=== PATIENT | female | born 1950 | race Caucasian/White ===

== ENCOUNTER → 2018-02-17 10:55 | Outpatient (CLI) | payer BC, SELFPAY ==
--- NOTE | 2018-02-17 | DI.CT.S_ITS ---
PROCEDURE: CT ABDOMEN WO CON INDICATIONS: EPIGASTRIC PAIN TECHNIQUE: After the administration of oral contrast, 5 mm thick sections acquired from the diaphragms to the iliac crests. 5 mm coronal and sagittal reformats were then performed. For radiation dose reduction, the following was used: automated exposure control, adjustment of mA and/or kV according to patient size. COMPARISON: Outside Facility, , CT ABDOMEN/PELVIS WITH CONTRAST, 07/18/2015, 10:05. FINDINGS: Image quality: Limited by absence of both oral and intravenous contrast.. Lung bases: Lung bases are clear. Heart size is normal. Solid organs: Liver is normal in size. Gallbladder appears normal. Pancreas is normal in contours. Spleen is normal in size. No adrenal nodules. Both kidneys are normal in size, without hydronephrosis or nephrolithiasis. Peritoneum and bowel: Bowel loops demonstrate normal wall thickness and caliber. No free fluid or air. Nodes and vessels: No retroperitoneal or mesenteric adenopathy by size criteria. Aorta and inferior vena cava are normal in size. Bones: No suspicious bony lesions. No vertebral body compression fractures. Miscellaneous: No ventral hernias. IMPRESSION: Source of epigastric pain is not seen. Dictated by: Bhaskar Parra M.D. on 02/17/2018 at 13:40 Approved by: Bhaskar Parra M.D. on 02/17/2018 at 13:41
== END ==
PROVIDERS: Visit Provider Family Medicine
DX: R10.13 Epigastric pain (principal)
CPT/HCPCS: 74150

== ENCOUNTER 2018-04-23 16:21 | Emergency (ER) | payer BC, SELFPAY ==
[2018-04-23 16:24] VITALS: BP 168/80; PULSE 71; RESP 16; TEMP 36.4; BMI 33.3
--- NOTE | 2018-04-23 16:32 | DI.RAD.S_ITS ---
PROCEDURE: XR CHEST 1V INDICATIONS: Shortness of breath TECHNIQUE: One view of the chest was acquired. COMPARISON: None. FINDINGS: Surgical changes and devices: Cervical fixation plates. Lungs and pleura: No pleural effusions or pneumothorax. Lungs are clear. Mediastinum: Mediastinal contours appear normal. Heart size is normal. Bones and chest wall: No suspicious bony lesions. Overlying soft tissues appear unremarkable. IMPRESSION: No acute pulmonary process. Dictated by: Selam Khan M.D. on 04/23/2018 at 17:53 Approved by: Selam Khan M.D. on 04/23/2018 at 17:53
--- NOTE | 2018-04-23 16:44 | ED_ITS ---
HPI - Chest Pain General Chief Complaint: Chest Pain Stated Complaint: TROUBLE BREATHING HEADACHE NAUSEA Time Seen by Provider: 04/23/18 16:32 Source: patient Mode of arrival: ambulatory Limitations: no limitations History of Present Illness HPI narrative: 67-year-old nonsmoking female presents with a chief complaint of multiple relatively vague symptoms that have been persisting for the past week. She has felt fatigued and a bit out of it with episodes of mild headache and occasional cough. She has been nauseated and had some decreased appetite. She states she feels like she often does when a viral syndrome is present but due to an episode of near-syncope this morning where she felt quite flushed and very odd she decided to present to the emergency department for further evaluation. patient had some episodes of left shoulder pain that resolved She denies ongoing symptoms MD complaint: other Onset (ago): day(s) Duration: intermittent and now resolved Context: recent illness Associated symptoms: nausea and dyspnea Treatments prior to arrival chest pain: aspirin Related Data Previous Rx's Medication Instructions Recorded aalbzrfs-blfsxsbwz-HA 1 drp OTIC Q8 HRS #10 ml 02/25/16 tretinoin [Retin-A] 1 dex TOPICAL BID #30 gm 05/22/16 albuterol sulfate [Proventil HFA] 1 puff INH QID #1 inh 07/15/16 lidocaine HCl [Lidocaine Viscous] 0 PO SEE INSTRUCTIONS #100 ml 07/15/16 meclizine 25 mg PO TIDP PRN #90 tab 07/15/16 ondansetron HCl 4 mg PO Q8HP PRN #30 tab 07/15/16 triamcinolone acetonide 1 dex TOPICAL SEE INSTRUCTIONS #15 07/15/16 gm duloxetine [Cymbalta] 30 mg PO SEE INSTRUCTIONS #90 cap 08/10/16 arwfzyjnqm-wrieingiiqymv-wifq 1 - 2 tab PO Q4HP PRN #30 08/14/16 buspirone 10 mg PO BID #60 tab 09/22/16 gabapentin [Neurontin] 300 mg PO PRN PRN #90 cap 09/22/16 methocarbamol [Robaxin-750] 750 mg PO QIDP PRN #60 tab 10/23/16 oxycodone 0 mg PO SEE INSTRUCTIONS PRN #18 10/23/16 tab omeprazole 20 mg PO BID #60 cap 05/31/17 Allergies Allergy/AdvReac Type Severity Reaction Status Date / Time iodine [IODINE] Allergy Unknown Verified 04/23/18 16:29 ketorolac [From TORADOL] Allergy Unknown Verified 04/23/18 16:29 kiwi [KIWI] Allergy Unknown Verified 04/23/18 16:29 latex [LATEX] Allergy Unknown Verified 04/23/18 16:29 methotrexate [METHOTREXATE] Allergy Unknown Verified 04/23/18 16:29 perfume [PERFUME] Allergy Unknown Verified 04/23/18 16:29 pineapple [PINEAPPLE] Allergy Unknown Verified 04/23/18 16:29 walnut [WALNUT] Allergy Unknown Verified 04/23/18 16:29 BERRIES Allergy Unknown Uncoded 04/23/18 16:29 CANE SUGAR Allergy Unknown Uncoded 04/23/18 16:29 HAIRSPRAY Allergy Unknown Uncoded 04/23/18 16:29 NEWSPAPER INK Allergy Unknown Uncoded 04/23/18 16:29 PFS Surgical History Status post delivery Status post hysterectomy Family History Brother Heart disease Essential hypertension Hyperlipidemia Father Malignant neoplasm of lung, unspecified laterality, unspecified part of lung Heart disease Essential hypertension Hyperlipidemia Grandmother Cancer Type 2 diabetes mellitus without complication, unspecified prison insulin use status Heart disease Essential hypertension Hyperlipidemia Cerebrovascular accident (CVA), unspecified mechanism Mother Cancer Heart disease Essential hypertension Hyperlipidemia Cerebrovascular accident (CVA), unspecified mechanism Grandfather Heart disease Essential hypertension Hyperlipidemia Grandmother Cerebrovascular accident (CVA), unspecified mechanism Social History Smoking Status: Never smoker Exam Narrative Exam Narrative: GENERAL: T 67-year-old female resting comfortably with her at the bedside. She is in no obvious distress HEAD: Atraumatic. Normocephalic. No temporal or scalp tenderness. EYES: Pupils equal round and reactive. Extraocular motions intact. No scleral icterus. No injection or drainage. ENT: Nose without bleeding, purulent drainage or septal hematoma. Throat without erythema, tonsillar hypertrophy or exudate. Uvula midline. Airway patent. NECK: Trachea midline. No JVD or lymphadenopathy. Supple, nontender, no meningeal signs. CARDIOVASCULAR: Regular rate and rhythm without murmurs, gallops, or rubs. RESPIRATORY: Clear to auscultation. Breath sounds equal bilaterally. No wheezes , rales, or rhonchi. GASTROINTESTINAL: Abdomen soft, non-tender, nondistended. No hepato-splenomegaly , or palpable masses. No guarding. EXTREMITIES: No clubbing, cyanosis, or edema. No joint tenderness, effusion, or edema noted. BACK: Nontender without deformity or crepitance. No flank tenderness. NEURO: AOx3. SKIN: No rash or erythema. Initial Vital Signs Initial Vital Signs: Vital Signs Temperature 97.6 F 04/23/18 16:24 Pulse Rate 71 04/23/18 16:24 Respiratory Rate 16 04/23/18 16:24 Blood Pressure 168/80 H 04/23/18 16:24 Scores HEART Score Heart Score history: Slightly Suspicious Heart Score EKG: Normal Heart Score Age: > or = 65 years old Heart Score risk factors: No known risk factors Heart Score troponin: < or = to normal limit Heart Score Total: 2 Course Orders Ordered: ED Orders 04/23/18 16:32 XR chest 1V Stat 04/23/18 16:45 Complete Blood Count AUTO DIFF Stat Comprehensive Metabolic Panel Stat Lipase Stat Troponin & CK Cardiac Panel Stat Discontinued Medications Sodium Chloride (Normal Saline 0.9%) 1,000 mls @ 150 mls/hr IV CONT ABRAHAM Last Infusion: 04/23/18 18:00 Dose: 0 mls/hr Admin: 04/23/18 17:05 Dose: 150 mls/hr Vital Signs - 8 hr 04/23/18 16:24 04/23/18 17:30 04/23/18 18:15 Temperature 97.6 F Pulse Rate 71 63 Respiratory Rate 16 10 L 12 Blood Pressure 168/80 H 121/55 L Blood Pressure [Left Arm] 113/63 Pulse Oximetry 100 100 MDM - Chest Pain Differential Diagnosis Likely stable angina, unstable angina pectoris, atypical chest pain, st elevation myocardial infarction and chest pain Medical Records Data Attestation: I reviewed the patient's medical records. Lab Data Attestation: I reviewed the patient's lab results. Result diagrams: 04/23/18 16:45 04/23/18 16:45 Lab Results 04/23/18 04/23/18 Range/Units 16:45 16:45 WBC 5.2 (4.5-11.0) X10^3/uL RBC 4.66 (4.0-5.2) X10^6/uL Hgb 14.3 (12.0-16.0) g/dL Hct 42.6 (36-46) % MCV 91.4 (80-100) fL MCH 30.7 (26-34) PG MCHC 33.6 (30-36) % RDW 14.1 (11.6-14.8) % Plt Count 250 (150-400) X10^3/uL Neut % (Auto) 52.9 (50-75) % Lymph % (Auto) 36.0 (25-40) % Schleicher % (Auto) 8.1 (3-14) % Eos % (Auto) 2.2 (2-4) % Baso % (Auto) 0.8 (0-2) % Neut # (Auto) 2700 L (3886-6972) /uL Sodium 142 (137-145) mmol/L Potassium 3.5 (3.4-5.1) mmol/L Chloride 102 (98-107) mmol/L Carbon Dioxide 29 (22-32) mmol/L BUN 15 (7-17) mg/dL Creatinine 1.00 (0.52-1.04) mg/dL Estimated GFR 55.6 L (>60) mL/min BUN/Creatinine Ratio 15.0 (6-22) Glucose 105 (80-110) mg/dL Calcium 9.5 (8.4-10.2) mg/dL Total Bilirubin 0.3 (0.2-1.3) mg/dL AST 19 (14-36) IU/L ALT 22 (9-52) IU/L Alkaline Phosphatase 64 (38-126) U/L Total Creatine Kinase 48 (30-135) U/L CK-MB (CK-2) TNP CK-MB (CK-2) Rel Index TNP Troponin I < 0.012 (0.01-0.034) ng/mL Total Protein 7.2 (6.3-8.2) g/dL Albumin 4.5 (3.5-5.0) g/dL Globulin 2.7 (1.7-4.1) g/dL Albumin/Globulin Ratio 1.7 (1.0-2.8) Lipase 46 (23-300) U/L Urine Dip Bedside Urine Glucose Negative Bedside Urine Bilirubin - Negative Bedside Urine Ketone - Negative Urine Specific [place] 1.010 Bedside Urine Occult Blood - Negative Bedside Urine pH 6.5 Bedside Urine Protein - Negative Bedside Urine Urobilinogen - Negative Bedside Urine Nitrite - Negative Bedside Urine Leukocytes - Negative Esterase Imaging Data Chest x-ray: Radiologist's impression: [address] [id number] XRay Report Signed Patient: Yamilka Conrad EMR#: [id number] : 2Acct:[id number] Age/Sex: 67 / FDate of Service: 04/23/18 Loc: ED Accession Number: [id number] Procedure: XR chest 1V Ordering Provider: Santiago Godinez D.O. PROCEDURE: XR CHEST 1V INDICATIONS: Shortness of breath TECHNIQUE: One view of the chest was acquired. COMPARISON: None. FINDINGS: Surgical changes and devices: Cervical fixation plates. Lungs and pleura: No pleural effusions or pneumothorax. Lungs are clear. Mediastinum: Mediastinal contours appear normal. Heart size is normal. Bones and chest wall: No suspicious bony lesions. Overlying soft tissues appear unremarkable. IMPRESSION: No acute pulmonary process. Dictated by: Selam Khan M.D. on 04/23/2018 at 17:53 Approved by: Selam Khan M.D. on 04/23/2018 at 17:53 ECG Data Attestation: I personally reviewed and interpreted this ECG as follows: Prior ECG tracings: not available for review Interpretation: EKG is normal sinus rhythm and free of any signs of ischemia or ectopy. MDM Narrative Medical decision making narrative: 67-year-old female with symptoms for multiple days has nonischemic EKG, normal labs including troponin, normal chest x-ray is asymptomatic in the department. Discharge Plan Departure Patient Disposition: Home Clinical Impression: Near syncope Discharge Date/Time: 04/23/18 18:15 Interventions: ED Discharge Assessment Last Done: 04/23/18 18:15 Instructions: DI for Syncope in Adults (Fainting) Activity Restrictions/Additional Instructions: *You have been diagnosed with [ near syncope ] *What to do: *Take medications as directed *Follow up with your primary care provider in 2-3 days, call for an appointment. Let them know you were seen in the Emergency Department and that we ask that you be seen in follow up *Return to ER if you should have any new, worsening or concerning symptoms Prescriptions: No Action rjnajxkl-jnaxqmnpm-OP 10 ML drops,suspension 1 drp OTIC Q8 HRS Qty: 10 RF: 0 tretinoin [Retin-A] 0.025 % cream 1 dex Topical BID Qty: 30 RF: 2 albuterol sulfate [Proventil HFA] 90 MCG/PUFF HFA aerosol inhaler 1 puff INH QID Qty: 1 RF: 2 ondansetron HCl 4 MG tablet 4 mg PO Q8HP PRNQty: 30 RF: 3 triamcinolone acetonide 0.1 % cream 1 dex Topical SEE INSTRUCTIONS Qty: 15 RF: 3 meclizine 25 MG tablet 25 mg PO TIDP PRNQty: 90 RF: 3 lidocaine HCl [Lidocaine Viscous] 100 ML solution PO SEE INSTRUCTIONS Qty: 100 RF: 0 duloxetine [Cymbalta] 30 MG capsule,delayed release(DR/EC) 30 mg PO SEE INSTRUCTIONS Qty: 90 RF: 6 uaezlipjsc-xdfmbwwybhaxa-zjwc 1 EACH tablet 1 - 2 tab PO Q4HP PRNQty: 30 RF: 0 buspirone 10 MG tablet 10 mg PO BID Qty: 60 RF: 5 gabapentin [Neurontin] 300 MG capsule 300 mg PO PRN PRNQty: 90 RF: 3 methocarbamol [Robaxin-750] 750 MG tablet 750 mg PO QIDP PRNQty: 60 RF: 0 oxycodone 5 MG tablet PO SEE INSTRUCTIONS PRNQty: 18 RF: 0 omeprazole 20 MG capsule,delayed release(DR/EC) 20 mg PO BID Qty: 60 RF: 3 Referrals: Huseyin Vallejo MD [Physician] - Raúl Dexter MD [Physician] - Carmella Maynard MD [Physician] -
[2018-04-23 17:00] LABS: Add Manual Diff / Slide Review NO; Basophils Percent Auto 0.8 % (0-2); Eosinophils Percent Auto 2.2 % (2-4); Hematocrit 42.6 % (36-46); Hemoglobin 14.3 g/dL (12.0-16.0); Mean Corpuscular HGB Conc 33.6 % (30-36); Mean Corpuscular Hemoglobin 30.7 PG (26-34); Mean Corpuscular Volume 91.4 fL (80-100); Monocytes Percent Auto 8.1 % (3-14); Neutrophils Absolute Auto 2700 /uL (3000-5900); Neutrophils Percent Auto 52.9 % (50-75); Platelet Count 250 X10^3/uL (150-400); Red Blood Cell Count 4.66 X10^6/uL (4.0-5.2); Red Cell Distribution Width 14.1 % (11.6-14.8); White Blood Cell Count 5.2 X10^3/uL (4.5-11.0)
[2018-04-23] MEDS: SODIUM CHLORIDE 0.9% 1,000 ML 150 ML IV (17:05)
[2018-04-23 17:11] LABS: Alanine Aminotransferase 22 IU/L (9-52); Albumin 4.5 g/dL (3.5-5.0); Albumin Globulin Ratio 1.7 (1.0-2.8); Alkaline Phosphatase 64 U/L (38-126); Aspartate Aminotransferase 19 IU/L (14-36); Bilirubin Total 0.3 mg/dL (0.2-1.3); Blood Urea Nitrogen 15 mg/dL (7-17); Calcium 9.5 mg/dL (8.4-10.2); Carbon Dioxide 29 mmol/L (22-32); Chloride 102 mmol/L (98-107); Creatine Kinase 48 U/L (30-135); Estimated Glomerular Filt Rate 55.6 mL/min (>60); Globulin 2.7 g/dL (1.7-4.1); Glucose 105 mg/dL (80-110); HEMOLYSIS < 15 (0-50); Lipase 46 U/L (23-300); Potassium 3.5 mmol/L (3.4-5.1); Sodium 142 mmol/L (137-145); Total Protein 7.2 g/dL (6.3-8.2)
[2018-04-23 17:23] LABS: Troponin I < 0.012 ng/mL (0.01-0.034)
[2018-04-23 17:30] VITALS: BP 113/63; PULSE 63; RESP 10; O2SAT 100
[2018-04-23 18:15] VITALS: BP 121/55; RESP 12; O2SAT 100
== END 2018-04-23 18:15 | disposition home or self-care (01) ==
PROVIDERS: Emergency Provider Emergency Medicine
DX: R55 Syncope and collapse (principal); R07.89 Other chest pain
CPT/HCPCS: 36591; 71045; 80053; 81003; 82550; 83690; 84484; 85025; 93005; 96360; 99283; 99285

== ENCOUNTER → 2018-08-11 14:52 | Outpatient (CLI) | payer BC, SELFPAY | PROVIDERS: PCP Student in an Organized Health Care Education/Training Program; Visit Provider Student in an Organized Health Care Education/Training Program | DX: Z13.820 Encounter for screening for osteoporosis (principal); M85.852 Other specified disorders of bone density and structure, left thigh; Z78.0 Asymptomatic menopausal state; Z90.722 Acquired absence of ovaries, bilateral; Z87.891 Personal history of nicotine dependence | CPT/HCPCS: 77080 ==

== ENCOUNTER → 2018-11-03 11:06 | Outpatient (CLI) | payer BC, SELFPAY ==
--- NOTE | 2018-11-03 | DI.CT.S_ITS ---
PROCEDURE: CT ABDOMEN PELVIS W CON INDICATIONS: EPIGASTRIC PAIN TECHNIQUE: After the administration of oral and intravenous contrast, 5 mm thick sections acquired from the diaphragms to the symphysis. 5 mm thick coronal and sagittal reformats were performed. For radiation dose reduction, the following was used: automated exposure control, adjustment of mA and/or kV according to patient size. COMPARISON: None. FINDINGS: Image quality: Excellent. ABDOMEN: Lung bases: Lung bases are clear. Heart size is normal. Solid organs: Liver is normal in size and enhancement. Gallbladder is free of calcified gallstone but the common bile duct measures up to 12 mm with gallbladder in place. A calcified common duct stone is not seen but a noncalcified stone within the distal common duct could not be well visualized. Pancreatic mass is not found, and the pancreatic duct is not distended.. Biliary system is slightlydilated within the liver. Pancreas enhances normally. Spleen is normal in size and enhancement. No adrenal nodules. Kidneys are normal in size and enhancement, without hydronephrosis. Peritoneum and bowel: Stomach, small bowel, and colon loops are normal in caliber and wall thickness. No free fluid or air. Nodes and vessels: No retroperitoneal or mesenteric adenopathy. Aorta and inferior vena cava are normal in caliber. Miscellaneous: No ventral hernias. PELVIS: Genitourinary: Bladder wall thickness is normal. Miscellaneous: No inguinal hernias or adenopathy. Normal appendix right lower quadrant. Bones: No suspicious bony lesions. No vertebral body compression fractures. IMPRESSION: Slight prominence of the intrahepatic bile ducts, the common bile duct itself measures up to 12 mm which is abnormally enlarged for a patient who has gallbladder in place. A distal common duct stone or or even a ampullary mass conceivably could produce this appearance. Followup with correlation with quantitative liver function tests and consideration of obtaining MR cholangiogram may be warranted at this time. Dictated by: Bhaskar Parra M.D. on 11/03/2018 at 14:54 Approved by: Bhaskar Parra M.D. on 11/03/2018 at 14:58
[2018-11-03 12:09] LABS: Add Manual Diff / Slide Review NO; Basophils Absolute Auto 100 /uL (0-100); Basophils Percent Auto 1.4 % (0-2); Eosinophils Absolute Auto 100 /uL (0-450); Eosinophils Percent Auto 2.2 % (2-4); Hematocrit 44.8 % (36-46); Hemoglobin 14.8 g/dL (12.0-16.0); Lymphocytes Absolute Auto 1600 /uL (1100-4500); Lymphocytes Percent Auto 25.3 % (25-40); Mean Corpuscular Hemoglobin 31.3 PG (26-34); Mean Corpuscular Volume 94.9 fL (80-100); Monocytes Absolute Auto 500 /uL (0-900); Monocytes Percent Auto 7.5 % (3-14); Neutrophils Absolute Auto 4000 /uL (1500-7000); Neutrophils Percent Auto 63.6 % (50-75); Platelet Count 273 X10^3/uL (150-400); Red Blood Cell Count 4.72 X10^6/uL (4.0-5.2); Red Cell Distribution Width 13.6 % (11.6-14.8); White Blood Cell Count 6.3 X10^3/uL (4.5-11.0)
[2018-11-03 12:12] LABS: Alanine Aminotransferase 23 IU/L (9-52); Albumin 4.7 g/dL (3.5-5.0); Albumin Globulin Ratio 1.6 (1.0-2.8); Alkaline Phosphatase 67 U/L (38-126); Amylase 58 U/L (30-110); Aspartate Aminotransferase 22 IU/L (14-36); Bilirubin Total 0.4 mg/dL (0.2-1.3); Blood Urea Nitrogen 19 mg/dL (7-17); Carbon Dioxide 28 mmol/L (22-32); Chloride 101 mmol/L (98-107); Estimated Glomerular Filt Rate 55.5 mL/min (>60); Glucose 118 mg/dL (80-110); HEMOLYSIS < 15 (0-50); Lipase 73 U/L (23-300); Potassium 3.6 mmol/L (3.4-5.1); Sodium 141 mmol/L (137-145); Total Protein 7.7 g/dL (6.3-8.2)
[2018-11-05 14:58] LABS: Immunoglobulin A 89 mg/dL (81-463)
== END ==
LOC: CT 11:10 → LAB 11:44
PROVIDERS: PCP Student in an Organized Health Care Education/Training Program; Visit Provider Nurse Practitioner Family
DX: R10.13 Epigastric pain (principal)
CPT/HCPCS: 36415; 74177; 80053; 82150; 82784; 83516; 83690; 85025; Q9967

== ENCOUNTER → 2018-11-18 07:53 | Outpatient (CLI) | payer BC, SELFPAY ==
--- NOTE | 2018-11-18 | DI.MRI.S_ITS ---
PROCEDURE: MR ABDOMEN WO CON INDICATIONS: CBD DILATION ON PRIOR CT TECHNIQUE: Coronal HASTE through the abdomen, axial 2-D FLASH in- and [id number]-[id number], and breath-hold T2 FSE with fat saturation through the biliary system and pancreas. Oblique coronal and axial thin-slice HASTE, radial thick-slab HASTE centered on the extrahepatic bile ducts. Intravenous secretin: Not requested. COMPARISON: [facility], CT, CT ABDOMEN PELVIS W CON, 11/03/2018, 12:13. FINDINGS: Image quality: Excellent. Pancreas and biliary system: Intra-hepatic biliary ducts are non dilated. The extrahepatic common duct measures 1.2 cm in maximal dimension in the cystic duct insertion and 1.0 cm in diameter at the pancreatic head margin in the setting of gallbladder remaining in place. The gallbladder contains no calculus nor is there a calculus or mass seen within the distal common duct. Pancreas is normal in morphology, without adjacent soft tissue edema. Pancreatic duct is normal in caliber, without developmental anomalies. Gallbladder appears free of inflammation. Other solid organs: Liver is normal in size. Spleen is normal in size. No adrenal nodules. Both kidneys are normal in size, without hydronephrosis. Nodes and vessels: No retroperitoneal or mesenteric adenopathy by size criteria. Aorta and inferior vena cava are normal in size. Bowel and peritoneum: Unenhanced bowel loops are normal in caliber. No free fluid. Lung bases: No basal pleural effusions. Heart size is normal. Bones and soft tissues: No ventral hernias. Bone marrow is of normal overall signal. IMPRESSION: Isolated finding of unusual prominence of the extrahepatic bile ducts, measuring up to 1.2 cm as discussed above. A distal common duct calculus or ampullary mass is not seen. No pancreatic mass lesion or ductal distention is associated. Continued assessment of quantitative liver function test is recommended assuming they are abnormal. It is normal this may simply represent an anatomic variant for the patient. Dictated by: Bhaskar Parra M.D. on 11/18/2018 at 13:11 Approved by: Bhaskar Parra M.D. on 11/18/2018 at 13:18
== END ==
PROVIDERS: PCP Student in an Organized Health Care Education/Training Program; Visit Provider Nurse Practitioner Family
DX: K83.8 Other specified diseases of biliary tract (principal)
CPT/HCPCS: 74181

== ENCOUNTER → 2020-09-13 12:13 | Outpatient (CLI) | payer BC, SELFPAY ==
[2020-09-13] MEDS: COVID-19 VACC #1, MRNA(MOD) 100 MCG/0.5 ML VIAL IM (12:21)
== END ==
PROVIDERS: PCP Student in an Organized Health Care Education/Training Program; Visit Provider Internal Medicine
DX: Z23 Encounter for immunization (principal)
CPT/HCPCS: 0011A; 91301

== ENCOUNTER → 2020-10-11 12:13 | Outpatient (CLI) | payer BC, SELFPAY ==
[2020-10-11] MEDS: COVID-19 VACC #2, MRNA(MOD) 100 MCG/0.5 ML VIAL IM (12:24)
== END ==
PROVIDERS: PCP Student in an Organized Health Care Education/Training Program; Visit Provider Internal Medicine
DX: Z23 Encounter for immunization (principal)
CPT/HCPCS: 0012A; 91301

== ENCOUNTER 2021-04-20 15:01 | Emergency (ER) | payer BC, SELFPAY ==
[2021-04-20 15:20] VITALS: BP 178/102; PULSE 75; RESP 18; TEMP 36.3; O2SAT 99; BMI 37.8
--- NOTE | 2021-04-20 15:27 | DI.RAD.S_ITS ---
PROCEDURE: XR FOREARM RT 2V INDICATIONS: Suspected fracture in Right arm and left knee TECHNIQUE: 2 views of the forearm were acquired. COMPARISON: None. FINDINGS: Bones: No fractures or dislocations. No suspicious bony lesions. Age-appropriate bony degenerative changes are seen. Soft tissues: No suspicious soft tissue calcifications or masses. IMPRESSION: No displaced fractures are seen on these plain films. Dictated by: Jas Delgadillo M.D. on 04/20/2021 at 15:19 Approved by: Jas Delgadillo M.D. on 04/20/2021 at 15:19
--- NOTE | 2021-04-20 15:27 | DI.RAD.S_ITS ---
PROCEDURE: XR HUMERUS RT 2V INDICATIONS: Suspected fracture in Right arm and left knee TECHNIQUE: 2 views of the humerus were acquired. COMPARISON: [facility], CR, XR FOREARM RT 2V, 04/20/2021, 15:25. [facility], CR, XR KNEE LT 3V, 04/20/2021, 15:25. [facility], CR, XR WRIST RT MIN 3V, 04/20/2021, 15:25. [facility], CR, XR ELBOW RT MIN 3V, 04/20/2021, 15:25. FINDINGS: Bones: No fractures or dislocations. No suspicious bony lesions. The visualized ribs appear intact. Soft tissues: No suspicious soft tissue calcifications. The visualized lung demonstrates an unremarkable appearance. IMPRESSION: No definite fractures are seen by plain film. If there is point tenderness (or other clinical suspicion for a fracture not seen on these images) please consider a dedicated CT for further evaluation. Dictated by: Jas Delgadillo M.D. on 04/20/2021 at 15:16 Approved by: Jas Delgadillo M.D. on 04/20/2021 at 15:17
--- NOTE | 2021-04-20 15:27 | DI.RAD.S_ITS ---
PROCEDURE: XR ELBOW RT MIN 3V INDICATIONS: Suspected fracture in Right arm and left knee TECHNIQUE: 2 views of the elbow were acquired. COMPARISON: [facility], CR, XR FOREARM RT 2V, 04/20/2021, 15:25. [facility], CR, XR HUMERUS RT 2V, 04/20/2021, 15:25. [facility], CR, XR WRIST RT MIN 3V, 04/20/2021, 15:25. [facility], CR, XR KNEE LT 3V, 04/20/2021, 15:25. FINDINGS: Study is limited by nonstandard positioning. Bones: No fractures or dislocations. No suspicious bony lesions. Age-appropriate bony degenerative changes are seen. Soft tissues: No large elbow joint effusion. No suspicious soft tissue calcifications. IMPRESSION: Limited plain film, without a significant abnormality seen for age. Dictated by: Jas Delgadillo M.D. on 04/20/2021 at 15:15 Approved by: Jas Delgadillo M.D. on 04/20/2021 at 15:16
--- NOTE | 2021-04-20 15:27 | DI.RAD.S_ITS ---
PROCEDURE: XR WRIST RT MIN 3V INDICATIONS: Suspected fracture in Right arm and left knee TECHNIQUE: 4 views of the wrist were acquired. COMPARISON: [facility], CR, XR FOREARM RT 2V, 04/20/2021, 15:25. [facility], CR, XR HUMERUS RT 2V, 04/20/2021, 15:25. [facility], CR, XR ELBOW RT MIN 3V, 04/20/2021, 15:25. [facility], CR, XR KNEE LT 3V, 04/20/2021, 15:25. FINDINGS: Bones: No fractures or dislocations. No suspicious bony lesions. Degenerative changes are seen throughout, which are most prominent involving the 1st carpometacarpal joint. Milder degenerative changes are seen elsewhere. Scaphoid view: No navicular fractures are seen. Soft tissues: No suspicious soft tissue calcifications. IMPRESSION: No displaced fractures are seen. If there is snuffbox tenderness (or other clinical suspicion for a fracture not seen on these images) then a repeat examination would be recommended in 10 to 14 days, following splinting. Degenerative changes are seen, which are most prominent involving the 1st carpometacarpal joint. Dictated by: Jas Delgadillo M.D. on 04/20/2021 at 15:18 Approved by: Jas Delgadillo M.D. on 04/20/2021 at 15:18
--- NOTE | 2021-04-20 15:29 | DI.RAD.S_ITS ---
PROCEDURE: XR KNEE LT 3V INDICATIONS: Suspected fracture of Left knee TECHNIQUE: 3 views of the knee were acquired. COMPARISON: [facility], CR, XR FOREARM RT 2V, 04/20/2021, 15:25. [facility], CR, XR HUMERUS RT 2V, 04/20/2021, 15:25. [facility], CR, XR WRIST RT MIN 3V, 04/20/2021, 15:25. [facility], CR, XR ELBOW RT MIN 3V, 04/20/2021, 15:25. [facility], CR, XR KNEE LT 3V, 10/12/2017, 10:48. FINDINGS: Bones: No fractures or dislocations. No suspicious bony lesions. On the sunrise view, there is moderate to severe lateral patellofemoral joint space narrowing seen. Osteophyte formation can be seen along the margins of the patella. There is mild medial femorotibial joint space narrowing seen, with associated remodeling changes including subchondral sclerosis and osteophyte formation along the jointline. Soft tissues: No joint effusion. No suspicious soft tissue calcifications. IMPRESSION: No acute fractures are seen by plain film. Degenerative changes are seen, which are worst involving the lateral patellofemoral compartment. Dictated by: Jas Delgadillo M.D. on 04/20/2021 at 15:14 Approved by: Jas Delgadillo M.D. on 04/20/2021 at 15:15
== END 2021-04-20 17:40 | disposition left against medical advice (07) ==
PROVIDERS: Emergency Provider Emergency Medicine; PCP Student in an Organized Health Care Education/Training Program
DX: S49.91XA Unspecified injury of right shoulder and upper arm, initial encounter (principal); S89.92XA Unspecified injury of left lower leg, initial encounter; W19.XXXA Unspecified fall, initial encounter
CPT/HCPCS: 73060; 73080; 73090; 73110; 73562; 99281

== ENCOUNTER → 2022-01-27 15:10 | Outpatient (CLI) | payer BC, SELFPAY | PROVIDERS: PCP Physician Assistant; Referring Provider Physician Assistant; Visit Provider Physician Assistant | DX: Z13.820 Encounter for screening for osteoporosis (principal); Z78.0 Asymptomatic menopausal state; K58.9 Irritable bowel syndrome, unspecified; Z87.311 Personal history of (healed) other pathological fracture; Z90.710 Acquired absence of both cervix and uterus | CPT/HCPCS: 77080 ==

== ENCOUNTER → 2022-02-25 07:07 | Outpatient (CLI) | payer BC, SELFPAY ==
--- NOTE | 2022-02-25 07:12 | DI.RAD.S_ITS ---
PROCEDURE: XR CERVICAL SPINE 2V OR 3V INDICATIONS: NECK PAIN TECHNIQUE: 3 view(s) of the cervical spine were acquired. COMPARISON: None. FINDINGS: Bones: Patient is status post anterior fusion at C3 through C7 levels. Straightening of normal cervical lordosis is seen. No gross hardware loosening or failure. No fractures or dislocations to the C7-T1 level. The lateral masses of C1 appear intact on the odontoid view. No suspicious bony lesions. Soft tissues: No prevertebral soft tissue swelling. IMPRESSION: Post cervical spine fusion with straightening of normal cervical lordosis. No acute fracture or dislocation. No gross hardware complication. Dictated by: Cesar Swift M.D. on 02/25/2022 at 12:56 Approved by: Cesar Swift M.D. on 02/25/2022 at 12:57
== END ==
PROVIDERS: PCP Physician Assistant; Referring Provider Physician Assistant; Visit Provider Physician Assistant
DX: M54.2 Cervicalgia (principal); Z98.1 Arthrodesis status
CPT/HCPCS: 72040

== ENCOUNTER → 2022-09-17 09:40 | Outpatient (CLI) | payer BC, SELFPAY ==
--- NOTE | 2022-09-21 09:00 | PM.PFT.1 ---
Pulmonary Function Test Referral & Results Date Patient Seen: 09/17/22 Results: The spirometry demonstrates an FVC of 2.64 L which is 88% of predicted. The FEV1 was measured at 2.08 L which is 92% of predicted. The FEV1/FVC ratio was 79 which is 103% of predicted. Following the administration of bronchodilator there was a 17% improvement in FEF 25-75%. Lung volumes show an SVC of 2.82 L which is 98% of predicted. The diffusing capacity was measured at 19.05 which is 78% of predicted. No hemoglobin value was provided, so no correction for potential anemia could be made, if appropriate. The maximum voluntary ventilation was probably normal Interpretation: This study demonstrates probably normal spirometry. There may be a minimal reduction in diffusing capacity suggesting the possible presence of disease at the capillary alveolar level Clinical correlation suggested
== END ==
PROVIDERS: PCP Physician Assistant; Referring Provider Physician Assistant; Visit Provider Physician Assistant
DX: R06.02 Shortness of breath (principal); J45.30 Mild persistent asthma, uncomplicated; Z87.891 Personal history of nicotine dependence
CPT/HCPCS: 94060; 94726; 94729

== ENCOUNTER 2022-09-29 14:48 | Observation (INO) | payer BC, SELFPAY ==
[2022-09-29] VITALS (27 sets, daily range): BP systolic 132–172; BP diastolic 59–86; PULSE 65–77; RESP 13–21; TEMP 36.6; O2SAT 62–100; BMI 37.8
--- NOTE | 2022-09-29 15:05 | DI.CT.S_ITS ---
PROCEDURE: CT HEAD/BRAIN WO CON INDICATIONS: headache TECHNIQUE: Noncontrast 4.5 mm thick angled axial sections acquired from the foramen magnum to the vertex, with coronal and sagittal reformats. For radiation dose reduction, the following was used: automated exposure control, adjustment of mA and/or kV according to patient size. COMPARISON: None. FINDINGS: Image quality: Excellent. CSF spaces: Basal cisterns are patent. No extra-axial fluid collections. Ventricles are normal in size and shape. Brain: No midline shift. No intracranial masses or hemorrhage. Evangelista-white matter interface is normal. Skull and face: Calvarium and visualized facial bones are intact, without suspicious lesions. Sinuses: Visualized sinuses and mastoids are clear. IMPRESSION: Normal CT of the brain Approved by: Anant Esposito M.D. on 09/29/2022 at 16:44
[2022-09-29 15:39] LABS: Add Manual Diff / Slide Review NO; Basophils Absolute Auto 100 /uL (0-100); Eosinophils Absolute Auto 100 /uL (0-450); Eosinophils Percent Auto 1.4 % (2-4); Hemoglobin 14.5 g/dL (12.0-16.0); Lymphocytes Absolute Auto 1800 /uL (1100-4500); Lymphocytes Percent Auto 29.1 % (25-40); Mean Corpuscular HGB Conc 33.7 % (30-36); Mean Corpuscular Hemoglobin 31.8 PG (26-34); Mean Corpuscular Volume 94.3 fL (80-100); Monocytes Absolute Auto 500 /uL (0-900); Monocytes Percent Auto 7.5 % (3-14); Neutrophils Absolute Auto 3800 /uL (1500-7000); Platelet Count 258 X10^3/uL (150-400); Red Blood Cell Count 4.56 X10^6/uL (4.0-5.2); White Blood Cell Count 6.2 X10^3/uL (4.5-11.0)
[2022-09-29 15:51] LABS: Alanine Aminotransferase 9 IU/L (<35); Albumin 4.5 g/dL (3.5-5.0); Albumin Globulin Ratio 1.3 (1.0-2.8); Alkaline Phosphatase 54 U/L (38-126); Aspartate Aminotransferase 19 IU/L (14-36); BUN Creatinine Ratio 22.7 (6-22); Bilirubin Total 0.3 mg/dL (0.2-1.3); Blood Urea Nitrogen 17 mg/dL (7-17); Calcium 9.6 mg/dL (8.4-10.2); Carbon Dioxide 29 mmol/L (22-32); Chloride 102 mmol/L (98-107); Estimated Glomerular Filt Rate > 60 mL/min (>60); Globulin 3.4 g/dL (1.7-4.1); Glucose 100 mg/dL (80-110); HEMOLYSIS < 15 (0-50); Potassium 4.1 mmol/L (3.4-5.1); Sodium 138 mmol/L (137-145); Total Protein 7.9 g/dL (6.3-8.2)
--- NOTE | 2022-09-29 18:44 | ED_ITS ---
HPI - Neuro Symptoms/Deficit General Chief Complaint: Neuro Symptoms/Deficit Stated Complaint: says stroke, headache, r sided numbness Time Seen by Provider: 09/29/22 15:13 Source: patient Mode of arrival: Ambulatory History of Present Illness HPI Narrative: Patient is a 72-year-old female history of Parkinson's presents today with 2 days of head pain neck pain right-sided facial numbness right arm numbness and difficulty swallowing. She denies any injury but right-sided head is definitely tender to touch. She has decreased range of motion to her neck. She feels like her right face is numb. Today she was experiencing some ?fuzzy? vision. But no loss of vision. She does not have any difficulty walking. Denies any nausea or vomiting. She is been taking ibuprofen 400-600 mg every 6 hours for pain but has not really helped. She did have trouble eating oatmeal this morning which she typically eats every day. No difficulty with liquids. She also was experiencing some chest pain which she describes as heartburn. That started earlier today she still feels like it is there but not terrible. She denies any fever chills. On Anticoagulants: No Related Data Home Medications Medication Instructions Recorded Confirmed carbidopa 25 mg-levodopa 100 mg 1.5 tab PO BID 09/30/22 09/30/22 tablet Allergies Allergy/AdvReac Type Severity Reaction Status Date / Time iodine [IODINE] Allergy Unknown Verified 04/20/21 16:51 ketorolac [From TORADOL] Allergy Unknown Verified 04/20/21 16:51 kiwi [KIWI] Allergy Unknown Verified 04/20/21 16:51 latex [LATEX] Allergy Unknown Verified 04/20/21 16:51 methotrexate [METHOTREXATE] Allergy Unknown Verified 04/20/21 16:51 perfume [PERFUME] Allergy Unknown Verified 04/20/21 16:51 pineapple [PINEAPPLE] Allergy Unknown Verified 04/20/21 16:51 walnut [WALNUT] Allergy Unknown Verified 04/20/21 16:51 morphine AdvReac Intermediate vomit Verified 04/20/21 16:51 BERRIES Allergy Unknown Uncoded 04/20/21 16:51 CANE SUGAR Allergy Unknown Uncoded 04/20/21 16:51 HAIRSPRAY Allergy Unknown Uncoded 04/20/21 16:51 NEWSPAPER INK Allergy Unknown Uncoded 11/07/21 16:51 Review of Systems Review of Systems ROS Unobtainable: All systems reviewed & are unremarkable except as noted in HPI and below Hematologic/Lymphatic On Anticoagulants: No Patient History Medical History Acne (~1998) ADHD (~2004) Ankle pain (~1987) Anorexia nervosa Anxiety (~1952) Asthma Atrial fibrillation (~1999) Chicken pox (~1958) Chronic back pain (~1993) Contusion of multiple sites Depression (~1963) Fall Fibromyalgia (~1999) Foot pain (~1999) Fractures Headache (~1979) Hearing loss History of recurrent ear infection Hyperlipidemia (~1999) Hypertension (~1999) Infectious disease (~1955) Irritable bowel syndrome (~1997) Measles (~1959) Methadone dependence Migraines (~1959) Mumps (~1955) Osteoarthritis (~1999) Osteoporosis (~1998) Post traumatic stress disorder (PTSD) (~2001) Psoriasis (~1997) Restless leg syndrome Rubella (~1959) Seasonal allergies Shoulder pain (~2014) Slipped disc in neck Uncomplicated opioid dependence Vision disorder Surgical History History of back surgery History of elbow surgery (~1994) History of knee surgery (~1988) Status post delivery (~1977) Status post hysterectomy Family History Brother Heart disease Essential hypertension Hyperlipidemia Father Malignant neoplasm of lung, unspecified laterality, unspeci fied part of lung Heart disease Essential hypertension Hyperlipidemia Grandmother Cancer Type 2 diabetes mellitus without complication, unspecified termite technician insulin use status Heart disease Essential hypertension Hyperlipidemia Cerebrovascular accident (CVA), unspecified mechanism Mother Cancer Heart disease Essential hypertension Hyperlipidemia Cerebrovascular accident (CVA), unspecified mechanism Grandfather Heart disease Essential hypertension Hyperlipidemia Grandmother Cerebrovascular accident (CVA), unspecified mechanism Social History household members: spouse Smoking Status: Former smoker Smoking Status: Former smoker alcohol intake frequency: holidays/special occasions only Substance Use Type: does not use Exam Initial Vital Signs Initial Vital Signs: Vital Signs Temperature 98 F 09/29/22 14:53 Pulse Rate 76 09/29/22 14:53 Respiratory Rate 18 09/29/22 14:53 Blood Pressure 167/86 H 09/29/22 14:53 Pulse Oximetry 99 09/29/22 14:53 Oxygen Delivery Method Room Air 09/29/22 14:53 GENERAL: Alert pleasant 72-year-old female no acute distress HEENT: Head atraumatic, right parietal area very tender to touch no crepitations depressions no swelling, EOMI, pupils reactive, face symmetric, moist mucous membranes EARS: Tympanic membranes visualized, no erythema or bulging, no hemotympanum CARDIOVASCULAR: Regular rate and rhythm without murmurs, rubs or gallops. RESPIRATORY: Breath sounds equal bilaterally, no wheezes rales or rhonchi. ABDOMEN: Soft, nontender. Normoactive bowel sounds all 4 quadrants. No guarding or rebound. EXTREMITIES: Normal range of motion, no clubbing or edema. Neurovascularly intact NEUROLOGICAL: Alert and oriented x4.Normal gait and speech. Cranial nerves II through XII grossly intact. Good ynbpuq-yq-vmew, good egwj-em-enxn, strength equal bilaterally, no dysarthria or aphasia, sensation in tact to soft touch bilaterally, no visual changes, no facial droop SKIN: Warm, dry, no laceration, no petechiae, no rashes or lesions. Scores NIH Stroke Scale Level of Conciousness: Alert, keenly responsive Ask month/age: Answers both questions correctly. Open/close eyes, close hand: Performs both tasks correctly Best gaze horizontal: Normal Visual berry: No visual loss Facial palsy: Normal symetrical movement Left arm drift: No drift for full 10 sec Right arm drift: No drift for full 10 sec Left leg drift: No drift for full 5 sec Right leg drift: No drift for full 5 sec Limb ataxia: Absent Sensory on face/arms/legs: Normal, no sensory loss Best language: No aphasia, normal Dysarthria: Normal Extinction or inattention: No abnormality Total NIH Stroke scale score: 0 Course Orders Ordered: ED Orders 09/29/22 18:53 CT angio head and neck Stat 09/29/22 19:19 EKG-12 Lead Stat 09/29/22 19:21 Consult to Speech Therapy Evaluate & Treat 09/29/22 23:20 COVID19 -Nasal RAPID Stat 09/29/22 23:31 MR angio neck w con Stat MR stroke Stat 09/30/22 00:06 Consult to Occupational Therapy Evaluate & Treat Consult to Physical Therapy Evaluate & Treat Consult to Speech Therapy Evaluate & Treat 09/30/22 05:00 Basic Metabolic Panel Routine Complete Blood Count AUTO DIFF Routine Hemoglobin A1C% w Est Avg Glu Routine Acetaminophen (Acetaminophen 325 Mg Tablet) 650 mg PO Q6H PRN PRN Reason: Fever/Mild Pain (1-3) Aspirin (Aspirin Ec 81 Mg Tablet) 81 mg PO DAILY [facility] Atorvastatin Calcium (Atorvastatin 20 Mg Tablet) 80 mg PO BEDTIME [facility] Enoxaparin Sodium (Enoxaparin 40 Mg/0.4 Ml Syringe) 40 mg SUBCUT DAILY [facility] Naloxone HCl (Naloxone 0.4 Mg/Ml Vial) 0.2 mg IV Q2MIN PRN PRN Reason: Opiate Reversal Ondansetron HCl (Ondansetron 4 Mg/2 Ml Inj) 4 mg IV Q8HR PRN PRN Reason: Nausea And Vomiting Discontinued Medications Aspirin (Aspirin Ec 325 Mg Tablet) 325 mg PO NOW ONE Stop: 09/30/22 00:02 Last Admin: 09/30/22 00:10 Dose: Not Given Documented By: CT Diphenhydramine HCl (Diphenhydramine 50 Mg/Ml Vial) 25 mg IV NOW ONE Stop: 09/29/22 19:20 Last Admin: 09/29/22 19:25 Dose: 25 mg Documented By: RB Sodium Chloride (Normal Saline 0.9%) 1,000 mls @ 125 mls/hr IV CONT ABRAHAM Last Infusion: 09/30/22 01:08 Dose: 0 mls/hr Documented By: Admin: 09/29/22 23:25 Dose: 125 mls/hr Documented By: HNG Vital Signs Vital signs: Vital Signs - 8 hr 09/29/22 20:00 09/29/22 20:01 09/29/22 20:01 Pulse Rate 69 70 Respiratory Rate 16 17 Blood Pressure 142/67 H Pulse Oximetry 99 100 09/29/22 20:15 09/29/22 20:30 09/29/22 20:30 Pulse Rate 70 66 Respiratory Rate 16 13 Blood Pressure 142/70 H Pulse Oximetry 99 100 09/29/22 20:45 09/29/22 21:00 09/29/22 21:01 Pulse Rate 66 67 Respiratory Rate 19 17 Blood Pressure 148/70 H Pulse Oximetry 100 100 09/29/22 21:01 09/29/22 21:15 09/29/22 21:30 Pulse Rate 67 66 67 Respiratory Rate 15 13 21 Blood Pressure Pulse Oximetry 99 99 80 L 09/29/22 21:31 09/29/22 21:31 09/29/22 21:45 Pulse Rate 68 67 Respiratory Rate 18 17 Blood Pressure 132/59 L Pulse Oximetry 62 L 98 09/29/22 22:00 09/29/22 22:00 09/29/22 22:15 Pulse Rate 66 65 Respiratory Rate 17 15 Blood Pressure 134/63 Pulse Oximetry 100 99 09/29/22 22:30 09/29/22 22:31 09/29/22 22:31 Pulse Rate 65 66 Respiratory Rate 15 16 Blood Pressure 140/63 Pulse Oximetry 99 98 09/29/22 22:45 Pulse Rate 65 Respiratory Rate 16 Blood Pressure Pulse Oximetry 100 MDM - Neuro Symptoms/Deficit Lab Data 09/29/22 15:25 09/29/22 15:25 Labs: Lab Results 09/29/22 09/29/22 09/29/22 Range/Units 15:25 15:25 15:25 WBC 6.2 (4.5-11.0) X10^3/uL RBC 4.56 (4.0-5.2) X10^6/uL Hgb 14.5 (12.0-16.0) g/dL Hct 43.0 (36-46) % MCV 94.3 (80-100) fL MCH 31.8 (26-34) PG MCHC 33.7 (30-36) % RDW 14.0 (11.6-14.8) % Plt Count 258 (150-400) X10^3/uL Neut % (Auto) 61.0 (50-75) % Lymph % (Auto) 29.1 (25-40) % [place] % (Auto) 7.5 (3-14) % Eos % (Auto) 1.4 L (2-4) % Baso % (Auto) 1.0 (0-2) % Neut # (Auto) 3800 (2886-1883) /uL Lymph # (Auto) 1800 (7500-4247) /uL [place] # (Auto) 500 (0-900) /uL Eos # (Auto) 100 (0-450) /uL Baso # (Auto) 100 (0-100) /uL ESR (0-20) MM/HR Sodium 138 (137-145) mmol/L Potassium 4.1 (3.4-5.1) mmol/L Chloride 102 (98-107) mmol/L Carbon Dioxide 29 (22-32) mmol/L BUN 17 (7-17) mg/dL Creatinine 0.75 (0.52-1.04) mg/dL Estimated GFR > 60 (>60) mL/min BUN/Creatinine Ratio 22.7 H (6-22) Glucose 100 (80-110) mg/dL Calcium 9.6 (8.4-10.2) mg/dL Total Bilirubin 0.3 (0.2-1.3) mg/dL AST 19 (14-36) IU/L ALT 9 (<35) IU/L Alkaline Phosphatase 54 (38-126) U/L Total Creatine Kinase 35 (30-135) U/L CK-MB (CK-2) TNP CK-MB (CK-2) Rel Index TNP Troponin I < 0.012 (0.01-0.034) ng/mL C-Reactive Protein (<1.0) mg/dL Total Protein 7.9 (6.3-8.2) g/dL Albumin 4.5 (3.5-5.0) g/dL Globulin 3.4 (1.7-4.1) g/dL Albumin/Globulin Ratio 1.3 (1.0-2.8) SARS-CoV-2 (PCR) (Negative) 09/29/22 09/29/22 09/29/22 Range/Units 15:25 15:25 23:20 WBC (4.5-11.0) X10^3/uL RBC (4.0-5.2) X10^6/uL Hgb (12.0-16.0) g/dL Hct (36-46) % MCV (80-100) fL MCH (26-34) PG MCHC (30-36) % RDW (11.6-14.8) % Plt Count (150-400) X10^3/uL Neut % (Auto) (50-75) % Lymph % (Auto) (25-40) % Imperial % (Auto) (3-14) % Eos % (Auto) (2-4) % Baso % (Auto) (0-2) % Neut # (Auto) (1908-0049) /uL Lymph # (Auto) (9290-7131) /uL [place] # (Auto) (0-900) /uL Eos # (Auto) (0-450) /uL Baso # (Auto) (0-100) /uL ESR 4 (0-20) MM/HR Sodium (137-145) mmol/L Potassium (3.4-5.1) mmol/L Chloride (98-107) mmol/L Carbon Dioxide (22-32) mmol/L BUN (7-17) mg/dL Creatinine (0.52-1.04) mg/dL Estimated GFR (>60) mL/min BUN/Creatinine Ratio (6-22) Glucose (80-110) mg/dL Calcium (8.4-10.2) mg/dL Total Bilirubin (0.2-1.3) mg/dL AST (14-36) IU/L ALT (<35) IU/L Alkaline Phosphatase (38-126) U/L Total Creatine Kinase (30-135) U/L CK-MB (CK-2) CK-MB (CK-2) Rel Index Troponin I (0.01-0.034) ng/mL C-Reactive Protein 0.6 (<1.0) mg/dL Total Protein (6.3-8.2) g/dL Albumin (3.5-5.0) g/dL Globulin (1.7-4.1) g/dL Albumin/Globulin Ratio (1.0-2.8) SARS-CoV-2 (PCR) Negative (Negative) Urine Dip Bedside Urine Glucose Negative Bedside Urine Bilirubin - Negative Bedside Urine Ketone - Negative Urine Specific [place] 1.030 Bedside Urine Occult Blood +/- Bedside Urine pH 5.5 Bedside Urine Protein - Negative Bedside Urine Urobilinogen - Negative Bedside Urine Nitrite - Negative Bedside Urine Leukocytes - Negative Esterase Imaging Data CT scan - head: Radiologist's Impression: PROCEDURE:? CT HEAD/BRAIN WO CON ? INDICATIONS:? headache ? TECHNIQUE:? Noncontrast 4.5 mm thick angled axial sections acquired from the foramen magnum to the vertex, with coronal and sagittal reformats.? For radiation dose reduction, the following was used:? automated exposure control, adjustment of mA and/or kV according to patient size.? ? COMPARISON:? None. ? FINDINGS:? Image quality:? Excellent.? ? CSF spaces:? Basal cisterns are patent.? No extra-axial fluid collections.? Ventricles are normal in size and shape.? ? Brain:? No midline shift.? No intracranial masses or hemorrhage.? Evangelista-white matter interface is normal.? ? Skull and face:? Calvarium and visualized facial bones are intact, without suspicious lesions.? ? Sinuses:? Visualized sinuses and mastoids are clear.? ? IMPRESSION:? Normal CT of the brain ? ? ? Approved by: Anant Esposito M.D. on 09/29/2022 at 16:44? CTA - brain/neck: Radiologist's Impression: PROCEDURE:? CT ANGIO HEAD AND NECK ? INDICATIONS:? right sided neck pain, right facial numbness difficulty swal ? TECHNIQUE:? After the administration of intravenous contrast, 1 mm thick sections acquired from the aortic arch through the [place] of [place].? Post-contrast 4.5 mm thick sections then re-acquired from the foramen magnum to the vertex.? 3-dimensional qamrjui-hqghjdmrb-mzslzuyrhy (MIP) and/or volume rendering reformats were acquired of the central intracranial vasculature and neck separately. For radiation dose reduction, the following was used:? automated exposure control, adjustment of mA and/or kV according to patient size.? ? COMPARISON:? [facility], CT, CT HEAD/BRAIN WO CON, 09/29/2022, 15:12. ? FINDINGS:? Image quality:? Good ? HEAD ANGIOGRAPHY Anterior circulation: ICAs:? Mild calcifications of the left cavernous carotid ACAs:? Diminutive right BERNA comparison to the left, probably chronic MCAs: Normal and symmetric AComm: No aneurysm Venous sinuses: patent ? Posterior circulation: Dominance:? Left Vertebral arteries:? Incidental suspected fenestration of the left vertebral artery, versus focal dissection (). Basilar artery: Unremarkable PComms: No aneurysm naval architect: Unremarkable ? Overall jvty-vb-haovetzg intracranial vascular irregularity. ? NECK ANGIOGRAPHY Aortic arch and subclavian arteries: Normal flow, no aneurysm. CCAs: No stenosis, occlusion, or aneurysm. ICA origins (by NASCET criteria): No hemodynamically significant narrowing. ICAs: No stenosis, occlusion or aneurysm. ECAs: Origins are patent. Vertebral arteries: Unremarkable ? Soft tissues: No significant mass, aneurysm, or lymphadenopathy Lung apices: No pneumothorax Bones:? Cervical fusion hardware.? Degenerative changes are present. ? IMPRESSION:? Otpw-oz-sjmnmjls intracranial irregularity, likely atherosclerotic disease.? There is narrowing of the right BERNA, possibly congenital asymmetry.? There is also a focal lucency in the left vertebral artery at the dural entrance, possibly congenital fenestration, though differential includes focal dissection.? See reference image 4/160.? Otherwise, no large vessel occlusion.? Please consider MRI to further evaluate for infarct if necessary. ? Any quantitative measurements of stenosis were performed using NASCET criteria.? ? ? Dictated by: Bandar Story M.D. on 09/29/2022 at 20:57 ? ? Approved by: Bandar Story M.D. on 09/29/2022 at 21:05 ? ECG Data Interpretation: Sinus rhythm rate 71 DC 186 QRS [address] changes MDM Narrative Medical decision making narrative: Patient is 72-year-old female history of Parkinson's presents today with headache neck pain difficulty swallowing facial numbness and visual changes. She has had symptoms ongoing for a couple of days. However her vision changed today. She is very tender right posterior head. No significant abnormality or depression is found. Initial head CT is negative. This would be a very atypical presentation for a stroke. She does have numbness on the right side of her face right visual changes and today has difficulty swallowing. Nursing bedside evaluation reports that she failed her bedside swallow. She does not have difficulty managing her own secretions. NIH stroke scale is 0. CT angio shows atherosclerotic disease but no large vessel occlusions. With increased difficulty swallowing to go to tell TIA versus progression of Parkinson's. She is also very tender to touch back of her head which be in would be an atypical presentation of temporal arteritis. ESR is here DC negative. Would likely benefit from observation and MRI. Dr. Stephen accepts patient Stroke Core Measures Exclusion Criteria TPA in CVA: Symptom Onset >3 or 4.5 Hours Discharge Plan Departure Patient Disposition: Admitted as Observation Clinical Impression: Brain TIA Admit Date/Time: 09/29/22 23:33 Admit Provider: Lobo Stephen
--- NOTE | 2022-09-29 18:53 | DI.CT.S_ITS ---
PROCEDURE: CT ANGIO HEAD AND NECK INDICATIONS: right sided neck pain, right facial numbness difficulty swal TECHNIQUE: After the administration of intravenous contrast, 1 mm thick sections acquired from the aortic arch through the [place] of [place]. Post-contrast 4.5 mm thick sections then re-acquired from the foramen magnum to the vertex. 3-dimensional hpfmiis-anchygtxg-njjklujxwx (MIP) and/or volume rendering reformats were acquired of the central intracranial vasculature and neck separately. For radiation dose reduction, the following was used: automated exposure control, adjustment of mA and/or kV according to patient size. COMPARISON: [facility], CT, CT HEAD/BRAIN WO CON, 09/29/2022, 15:12. FINDINGS: Image quality: Good HEAD ANGIOGRAPHY Anterior circulation: ICAs: Mild calcifications of the left cavernous carotid ACAs: Diminutive right BERNA comparison to the left, probably chronic MCAs: Normal and symmetric AComm: No aneurysm Venous sinuses: patent Posterior circulation: Dominance: Left Vertebral arteries: Incidental suspected fenestration of the left vertebral artery, versus focal dissection (/160). Basilar artery: Unremarkable PComms: No aneurysm superannuation funds manager: Unremarkable Overall qsbx-vq-ahmsjgnm intracranial vascular irregularity. NECK ANGIOGRAPHY Aortic arch and subclavian arteries: Normal flow, no aneurysm. CCAs: No stenosis, occlusion, or aneurysm. ICA origins (by NASCET criteria): No hemodynamically significant narrowing. ICAs: No stenosis, occlusion or aneurysm. ECAs: Origins are patent. Vertebral arteries: Unremarkable Soft tissues: No significant mass, aneurysm, or lymphadenopathy Lung apices: No pneumothorax Bones: Cervical fusion hardware. Degenerative changes are present. IMPRESSION: Robs-gg-sorxoiax intracranial irregularity, likely atherosclerotic disease. There is narrowing of the right BERNA, possibly congenital asymmetry. There is also a focal lucency in the left vertebral artery at the dural entrance, possibly congenital fenestration, though differential includes focal dissection. See reference image 4/160. Otherwise, no large vessel occlusion. Please consider MRI to further evaluate for infarct if necessary. Any quantitative measurements of stenosis were performed using NASCET criteria. Dictated by: Bandar Story M.D. on 09/29/2022 at 20:57 Approved by: Bandar Story M.D. on 09/29/2022 at 21:05
[2022-09-29] MEDS: diphenhydrAMINE 50 MG/ML VIAL 25 MG IV (19:25)
[2022-09-29 20:02] LABS: Creatine Kinase 35 U/L (30-135)
[2022-09-29 20:40] LABS: Troponin I < 0.012 ng/mL (0.01-0.034)
[2022-09-29 23:25] LABS: Erythrocyte Sedimentation Rate 4 MM/HR (0-20)
[2022-09-29] MEDS: SODIUM CHLORIDE 0.9% 1,000 ML 125 ML IV (23:25)
[2022-09-29 23:30] LABS: C-Reactive Protein Quant 0.6 mg/dL (<1.0)
--- NOTE | 2022-09-29 23:31 | DI.MRI.S_ITS ---
PROCEDURE: MR STROKE Pre- and post-contrast brain MRI, non-contrast brain MR angiogram, pre- and postcontrast neck MR angiogram INDICATIONS: cva? TECHNIQUE: Brain: Noncontrast axial T1 spin echo, axial T2 fast spin echo, sagittal and axial FLAIR, coronal T2 fast spin echo, axial gradient echo, axial diffusion and ADC through the brain. After the administration of contrast, axial 3D VIBE of the cranial vasculature and brain. Brain MRA: Non-contrast 3-D time of flight MR angiogram, with multiple wnztlvg-ysgdwlfvs-minbgjjfxx (MIP) reformats performed. Neck MRA: Axial and sagittal TruFISP through the neck. Coronal dynamic MR angiogram during administration of contrast in the arterial and venous phases, with 3-dimenstional usnallu-bckddklxp-osanmyrcgx (MIP) reformats constructed from subtraction images. COMPARISON: [facility], CT, CT ANGIO HEAD AND NECK, 09/29/2022, 19:36. FINDINGS: Image quality: Excellent. BRAIN: CSF spaces: Ventricles are normal in size and shape. Basal cisterns are patent. No extra-axial fluid collections. Brain: No intracranial bleeds or mass effects. Evangelista-white matter interface is normal. Diffusion weighted images show no acute ischemic insults. Brainstem appears normal. Normal intravascular flow voids are present. No abnormal intracranial enhancement. Skull and face: Calvarial marrow signal is normal. Orbits appear normal. Sinuses: Sinuses and mastoids are clear. BRAIN MR ANGIOGRAM: Anterior circulation: Intracranial internal carotid arteries are normal in size and enhancement. The flow within the paired anterior cerebral arteries is normal and symmetric. The flow within the middle cerebral arteries is normal and symmetric. The anterior communicating artery is seen. No stenoses, occlusions, or aneurysms. Posterior circulation: The visualized portions of the vertebral arteries demonstrate normal caliber, and join to form a normal appearing basilar artery. The flow within the posterior cerebral arteries is normal and symmetric. No stenoses, occlusions, or aneurysms. NECK MR ANGIOGRAM: Suboptimal study secondary to technical issues. However, when evaluating the information provided in conjunction with the CT angiogram, there is no internal carotid artery stenosis noted. The vertebral arteries appear patent. IMPRESSION: BRAIN MRI: Normal brain parenchyma for patient age. Very minimal small vessel ischemic change. No evidence acute intracranial process. BRAIN MR ANGIOGRAM: Unremarkable NECK MR ANGIOGRAM: Suboptimal study. However, when viewed in conjunction with the CT angiogram, there is no significant carotid stenotic disease. Dictated by: Brayan Gibbs M.D. on 09/30/2022 at 9:02 Approved by: Brayan Gibbs M.D. on 09/30/2022 at 9:10
--- NOTE | 2022-09-29 23:37 | PM.HP.1 ---
History of Present Illness History of Present Illness Date Patient Seen: 09/29/22 Time Patient Seen: 23:00 Chief complaint: says stroke, headache, r sided numbness Narrative: Ms. Conrad is a 72W with H history of afib, depression, fibromyalgia/chronic pain, history of opiate dependence, htn, migraines who presents with headache, right arm discomfort and right facial numbness. She notes she has long history of migraines. However two days ago she had head discomfort that was completely different. This was notable for very tender, sharp pain in right occipital area. She developed some right eye blurry vision. She had pain with chewing and some difficulty with swallowing. She had right sided facial numbness. She had right arm discomfort. Because of the facial numbness starting today she came to the hospital. In the ED workup was done, vitals notable for afebrile, heart rate in the 70s, blood pressure 160s/80s, sats 99% on room air. Labs reviewed by me and notable for WBC 6.2, hgb 14.5, plts 258. Na 138, creatinine 0.75. LFTs normal. UA negative. CT head reviewed by me and negative for acute process. CTA head/neck shows narrowing of right BERNA, focal lucency of the left vertebral artery which differential includes focal dissection. ESR, CRP normal. She was given aspirin and admitted for further treatment. [facility] Medical History Acne (~1998) ADHD (~2004) Ankle pain (~1987) Anorexia nervosa Anxiety (~1952) Asthma Atrial fibrillation (~1999) Chicken pox (~1958) Chronic back pain (~1993) Contusion of multiple sites Depression (~1963) Fall Fibromyalgia (~1999) Foot pain (~1999) Fractures Headache (~1979) Hearing loss History of recurrent ear infection Hyperlipidemia (~1999) Hypertension (~1999) Infectious disease (~1955) Irritable bowel syndrome (~1997) Measles (~1959) Methadone dependence Migraines (~1959) Mumps (~195) Osteoarthritis (~1999) Osteoporosis (~1998) Post traumatic stress disorder (PTSD) (~2001) Psoriasis (~1997) Restless leg syndrome Rubella (~1959) Seasonal allergies Shoulder pain (~2014) Slipped disc in neck Uncomplicated opioid dependence Vision disorder Surgical History History of back surgery History of elbow surgery (~1994) History of knee surgery (~1988) Status post delivery (~1977) Status post hysterectomy Family History Brother Heart disease Essential hypertension Hyperlipidemia Father Malignant neoplasm of lung, unspecified laterality, unspecified part of lung Heart disease Essential hypertension Hyperlipidemia Grandmother Cancer Type 2 diabetes mellitus without complication, unspecified emt intermediate insulin use status Heart disease Essential hypertension Hyperlipidemia Cerebrovascular accident (CVA), unspecified mechanism Mother Cancer Heart disease Essential hypertension Hyperlipidemia Cerebrovascular accident (CVA), unspecified mechanism Grandfather Heart disease Essential hypertension Hyperlipidemia Grandmother Cerebrovascular accident (CVA), unspecified mechanism Social History Smoking Status: Former smoker Meds Home Medications and Allergies Home Medications Medication Instructions Recorded Confirmed Type triamcinolone acetonide 0.1 % 1 dex topical SEE INSTRUCTIONS ##15 07/15/16 08/01/19 Rx topical cream buspirone 10 mg tablet 10 mg PO BID #180 tabs 07/12/18 08/01/19 Rx hydrochlorothiazide 12.5 mg tablet 12.5 mg PO DAILY 08/22/18 08/01/19 History topiramate 25 mg tablet 25 mg PO DAILY 08/22/18 08/01/19 History rizatriptan 10 mg tablet 10 mg PO ONCE #10 tabs 10/03/18 08/01/19 Rx albuterol sulfate 90 mcg/actuation 1 puff inhalation QID PRN 08/01/19 08/01/19 Rx aerosol inhaler (Proventil HFA) shortness of breath or wheezing #1 inh erenumab-aooe 140 mg/mL 140 mg SUBCUT QMONTH #1 mL 08/01/19 08/01/19 Rx subcutaneous auto-injector (Aimovig Autoinjector) ondansetron HCl 4 mg tablet 4 mg PO Q8HP PRN nausea and 11/08/21 Rx vomiting #30 tabs Allergies Allergy/AdvReac Type Severity Reaction Status Date / Time iodine [IODINE] Allergy Unknown Verified 04/20/21 16:51 ketorolac [From TORADOL] Allergy Unknown Verified 04/20/21 16:51 kiwi [KIWI] Allergy Unknown Verified 04/20/21 16:51 latex [LATEX] Allergy Unknown Verified 04/20/21 16:51 methotrexate [METHOTREXATE] Allergy Unknown Verified 04/20/21 16:51 perfume [PERFUME] Allergy Unknown Verified 04/20/21 16:51 pineapple [PINEAPPLE] Allergy Unknown Verified 04/20/21 16:51 walnut [WALNUT] Allergy Unknown Verified 04/20/21 16:51 morphine AdvReac Intermediate vomit Verified 04/20/21 16:51 BERRIES Allergy Unknown Uncoded 04/20/21 16:51 CANE SUGAR Allergy Unknown Uncoded 04/20/21 16:51 HAIRSPRAY Allergy Unknown Uncoded 04/20/21 16:51 NEWSPAPER INK Allergy Unknown Uncoded 04/20/21 16:51 Review of Systems Review of Systems Narrative: 14 systems reviewed and negative aside from what is noted in HPI Exam Vital Signs (past 8 hours): - 09/29/22 18:09 09/29/22 18:11 09/29/22 18:11 Pulse Rate 77 75 Respiratory Rate 18 Blood Pressure 172/73 H Pulse Oximetry 100 100 09/29/22 18:15 09/29/22 18:30 09/29/22 18:31 Pulse Rate 73 72 Respiratory Rate 14 20 Blood Pressure 156/70 H Pulse Oximetry 100 99 09/29/22 18:31 09/29/22 18:45 09/29/22 19:00 Pulse Rate 73 70 70 Respiratory Rate 20 16 15 Blood Pressure Pulse Oximetry 100 100 100 09/29/22 19:01 09/29/22 19:01 Pulse Rate 72 Respiratory Rate 18 Blood Pressure 155/73 H Pulse Oximetry 100 Oxygen Delivery Method Room Air Narrative Exam Narrative: GEN: no acute distress HEENT: moist mucous membranes, PERRL, tenderness to palpation right occipital head NECK: trachea midline, no jvd CV: regular rate and rhythm, no murmurs PULM: clear bilaterally, no wheezes, rhonchi, rales ABD: soft, nontender, nondistended, normal bowel sounds EXT: warm and well perfused with no edema NEURO: awake, alert, oriented, no focal deficits Objective Labs 09/29/22 15:25 09/29/22 15:25 Labs: Laboratory Results - last 24 hr 09/29/22 09/29/22 09/29/22 15:25 15:25 15:25 WBC 6.2 RBC 4.56 Hgb 14.5 Hct 43.0 MCV 94.3 MCH 31.8 MCHC 33.7 RDW 14.0 Plt Count 258 Neut % (Auto) 61.0 Lymph % (Auto) 29.1 Emmet % (Auto) 7.5 Eos % (Auto) 1.4 L Baso % (Auto) 1.0 Neut # (Auto) 3800 Lymph # (Auto) 1800 Emmet # (Auto) 500 Eos # (Auto) 100 Baso # (Auto) 100 ESR Sodium 138 Potassium 4.1 Chloride 102 Carbon Dioxide 29 BUN 17 Creatinine 0.75 Estimated GFR > 60 BUN/Creatinine Ratio 22.7 H Glucose 100 Calcium 9.6 Total Bilirubin 0.3 AST 19 ALT 9 Alkaline Phosphatase 54 Total Creatine Kinase 35 CK-MB (CK-2) TNP CK-MB (CK-2) Rel Index TNP Troponin I < 0.012 C-Reactive Protein Total Protein 7.9 Albumin 4.5 Globulin 3.4 Albumin/Globulin Ratio 1.3 09/29/22 09/29/22 15:25 15:25 WBC RBC Hgb Hct MCV MCH MCHC RDW Plt Count Neut % (Auto) Lymph % (Auto) Emmet % (Auto) Eos % (Auto) Baso % (Auto) Neut # (Auto) Lymph # (Auto) Emmet # (Auto) Eos # (Auto) Baso # (Auto) ESR 4 Sodium Potassium Chloride Carbon Dioxide BUN Creatinine Estimated GFR BUN/Creatinine Ratio Glucose Calcium Total Bilirubin AST ALT Alkaline Phosphatase Total Creatine Kinase CK-MB (CK-2) CK-MB (CK-2) Rel Index Troponin I C-Reactive Protein 0.6 Total Protein Albumin Globulin Albumin/Globulin Ratio Assessment & Plan Assessment & Plan narrative: 1. Facial numbness, transient and headache -etiology not clear -ESR and CRP negative, so doubt vasculitis such as GCA -symptoms are very nonspecific, some may be related to parkinsons -evaluate further for possible TIA -symptoms completely resolved on admission -order MRI head to rule out stroke -check echo -ordered aspirin, statin -keep on telemetry -check a1c, lipids -continue to monitor nih score -consult speech, pt, ot 2. Questionable left vertebral artery dissection -CTA noted possible abnormality in left vertebral artery -unclear if possible small dissection -patient describes symptoms as right sided numbness and headache which are not consistent with left sided vertebral abnormality -order MR angio with contrast for further evaluation 3. Parkinsons disease -continue sinemet 4. Chronic pain, documented fibromyalgia, history of opioid dependece -careful with prescribing addictive medications, she has had dependence issues and been fired from pain management clinic in the past 5. History of migraine -asymptomatic, continue home medications once reconciled 6. Hypertension -continue home medications I have discussed plan and obtained history from the patient. I have discussed plan of care with ED physician and bedside nurse. I have reviewed labs, imaging, and medical notes. CODE: Full Proxy: Ap Conrad, Quality [facility] - Meds 'Current medications' to include all prescriptions, [id number] products, herbals, cannabis/cannabidiol products, and vitamin/mineral/dietary (nutritional) supplements. I have utilized all available resources to obtain, update, or review the patient?s current medications. [If Yes, STOP here]: Yes
[2022-09-29 23:43] LABS: COVID19 -Nasal RAPID Negative (Negative)
[2022-09-30 00:06] VITALS: BP 120/67; PULSE 68; RESP 16; TEMP 37.1; O2SAT 100; BMI 37.8
[2022-09-30 04:06] VITALS: O2SAT 100
[2022-09-30 05:00] VITALS: BP 133/51; PULSE 65; RESP 18; TEMP 36.3; O2SAT 96
--- NOTE | 2022-09-30 06:21 | DI.ECHO.S_ITS ---
[place] [facility]---------+ [facility] +---------+ : : [address] : : : : [id number] : : : : Phone: [phone] Echocardiogram Report + + :Name: GEOVANNY GREEN Study Date: 09/30/2022 Height: 64 in : :[facility] ReadingLocation: Weight: 220 lb : : Gender: Female BSA: 2.0 m2 : :: 1950 Age: 72 yrs BP: 120/67 mmHg: :Reason For Study: TIA VS CVA : :Ordering Physician: KHARI, : :NEHAL Performed By: Cathy Polanco : :Referring: NEHAL LUCIA : + + Interpretation Summary The ejection fraction is estimated to be 60-65%. There is no Doppler evidence for an interatrial shunt. Injection of contrast documented no interatrial shunt. There is no significant valvular heart disease. Procedure: A two-dimensional transthoracic echocardiogram with color flow and Doppler was performed. The study quality was technically adequate. There is no prior echocardiogram noted for this patient. A saline contrast injection was performed to assess for cardiac shunting. The injection was performed through an intravenous line in the right arm. The patient was in sinus rhythm with heart rates between 62-68 bpm during the exam. Left Ventricle: The left ventricle is normal in size. Proximal septal thickening is noted. The ejection fraction is estimated to be 60-65%. Left ventricular wall motion is normal. Right Ventricle: The right ventricle is normal in size and function. Atria: The left atrial size is normal. Right atrial size is normal. There is no Doppler evidence for an interatrial shunt. Injection of contrast documented no interatrial shunt. Mitral Valve: The mitral valve is normal in structure and function. There is trace mitral regurgitation. Aortic Valve: The aortic valve opens well. There is no aortic valve stenosis. No aortic regurgitation is present. Tricuspid Valve: The tricuspid valve is normal in structure and function. No tricuspid regurgitation. Pulmonary artery pressures cannot be estimated because of the lack of a measurable TR jet velocity. Pulmonic Valve: The pulmonic valve is not well seen, but is grossly normal. There is no pulmonic valvular regurgitation. Great Vessels: The aortic root is normal size. The dimensions of the ascending aorta are normal. The IVC is of normal diameter and collapses greater than 50% with a sniff. This suggests a low right atrial pressure of 3 mm Hg. Pericardium/ Pleura There is no pericardial effusion. There is no pleural effusion. MMode/2D Measurements & Calculations LVIDd: 4.7 cm LVOT diam: 2.1 cm LVIDs: 3.1 cm Ao root diam: 3.7 cm FS: 33.8 % asc Aorta Diam: 3.5 cm EPSS: 0.50 cm Ao Arch Diam (Prox Trans): 3.2 cm IVSd: 0.80 cm LVPWd: 0.99 cm LV marroquin. diameter/BSA (cm/m^2): 2.3 LV sys. diameter/BSA (cm/m^2): 1.5 LA A2 area: 21.5 cm2 RA long axis: 4.9 cm LA A4 area: 17.0 cm2 RA area: 13.7 cm2 LA length (vol): 5.2 cm RA vol: 32.6 ml LA vol: 59.4 ml RA : 16.0 ml/m2 LA vol index: 29.2 ml/m2 IVC diam: 1.3 cm RVD1 (basal): 3.3 cm RVD2 (mid): 3.2 cm TAPSE: 1.9 cm Doppler Measurements & Calculations Ao V2 max: 125.6 cm/sec LVOT Max Willian: 104.7 cm/sec Ao V2 mean: 86.7 cm/sec LV V1 max P.4 mmHg Ao max P.3 mmHg LV V1 VTI: 27.0 cm Ao mean P.3 mmHg YAMILET(I,D): 3.6 cm2 Ao V2 VTI: 27.4 cm YAMILET(V,D): 3.0 cm2 sev ratio: 0.99 YAMILET indexed to BSA (cm^2/m^2): 1.8 MV E max willian: 72.5 cm/sec PA V2 max: 76.2 cm/sec MV A max willian: 69.2 cm/sec PA V2 mean: 55.2 cm/sec MV E/A: 1.0 PA mean P.3 mmHg Med Peak E' Willian: 6.3 cm/sec PA pr(Accel): 24.2 mmHg E/E' med: 11.5 Lat Peak E' Willian: 9.8 cm/sec E/E' lat: 7.4 E/e' average: 9.4 MV dec time: 0.26 sec SV(LVOT): 97.7 ml Reading Physician:09:09 AM
[2022-09-30 06:24] LABS: Add Manual Diff / Slide Review NO; Basophils Absolute Auto 100 /uL (0-100); Basophils Percent Auto 1.4 % (0-2); Eosinophils Absolute Auto 100 /uL (0-450); Eosinophils Percent Auto 1.8 % (2-4); Hematocrit 39.4 % (36-46); Hemoglobin 13.3 g/dL (12.0-16.0); Lymphocytes Absolute Auto 1700 /uL (1100-4500); Mean Corpuscular HGB Conc 33.9 % (30-36); Mean Corpuscular Hemoglobin 31.7 PG (26-34); Mean Corpuscular Volume 93.7 fL (80-100); Monocytes Absolute Auto 400 /uL (0-900); Monocytes Percent Auto 9.1 % (3-14); Neutrophils Absolute Auto 2300 /uL (1500-7000); Neutrophils Percent Auto 50.7 % (50-75); Platelet Count 222 X10^3/uL (150-400); Red Cell Distribution Width 14.4 % (11.6-14.8); White Blood Cell Count 4.6 X10^3/uL (4.5-11.0)
[2022-09-30 06:41] LABS: BUN Creatinine Ratio 21.1 (6-22); Blood Urea Nitrogen 15 mg/dL (7-17); Calcium 8.7 mg/dL (8.4-10.2); Carbon Dioxide 25 mmol/L (22-32); Chloride 107 mmol/L (98-107); Cholesterol 216 mg/dL (140-199); Estimated Glomerular Filt Rate > 60 mL/min (>60); Glucose 98 mg/dL (80-110); HDL Cholesterol 63 mg/dL (40-60); HEMOLYSIS < 15 (0-50); LDL Cholesterol Calculated 133 mg/dL (<100); Potassium 3.8 mmol/L (3.4-5.1); Sodium 137 mmol/L (137-145); Triglycerides 98 mg/dL (35-150)
--- NOTE | 2022-09-30 07:53 | PC.NURSE ---
Day shift: Pt off unit for MRI at approx 0740.
[2022-09-30] MEDS: CARBIDOPA-LEVODOPA 25/100 TABLET 1.5 EACH PO (08:22)
[2022-09-30] MEDS: ASPIRIN EC 81 MG TABLET PO (08:24)
[2022-09-30] MEDS: ENOXAPARIN 40 MG/0.4 ML SYRINGE SUBCUT (08:24)
[2022-09-30 08:36] VITALS: O2SAT 97
[2022-09-30] MEDS: ACETAMINOPHEN 325 MG TABLET 650 MG PO (08:42)
[2022-09-30 09:00] VITALS: BP 135/55; PULSE 71; RESP 18; TEMP 36.9; O2SAT 100
--- NOTE | 2022-09-30 10:17 | SLP.IPNOTE ---
Order CA per MD
--- NOTE | 2022-09-30 10:24 | P.DS_ITS ---
History of Present Illness History of Present Illness Date Patient Seen: 09/30/22 Time Patient Seen: 10:25 Chief complaint: says stroke, headache, r sided numbness Narrative: Ms. Conrad is a 72W with PMH history of afib, depression, fibromyalgia/chronic pain, history of opiate dependence, htn, migraines who presents with headache, right arm discomfort and right facial numbness. She notes she has long history of migraines. However two days ago she had head discomfort that was completely different. This was notable for very tender, sharp pain in right occipital area. She developed some right eye blurry vision. She had pain with chewing and some difficulty with swallowing. She had right sided facial numbness. She had right arm discomfort. Because of the facial numbness starting today she came to the hospital. In the ED workup was done, vitals notable for afebrile, heart rate in the 70s, blood pressure 160s/80s, sats 99% on room air. Labs reviewed by me and notable for WBC 6.2, hgb 14.5, plts 258. Na 138, creatinine 0.75. LFTs normal. UA negati ve. CT head reviewed by me and negative for acute process. CTA head/neck shows narrowing of right BERNA, focal lucency of the left vertebral artery which differential includes focal dissection. ESR, CRP normal. She was given aspirin and admitted for further treatment. Discharge Providers Provider Date of admission: 09/29/22 23:33 Discharge Date: 09/30/22 Primary care physician: Jannette Montez PA-C Consults: 09/29/22 19:21 Consult to Speech Therapy Evaluate & Treat Comment: failed swallow screen Physician Instructions: Evaluate and treat 09/30/22 00:06 Consult to Occupational Therapy Evaluate & Treat Comment: Physician Instructions: Evaluate and treat Consult to Physical Therapy Evaluate & Treat Comment: Physician Instructions: Evaluate and Treat Consult to Speech Therapy Evaluate & Treat Comment: Physician Instructions: Evaluate and treat Discharge provider: Soy Land DO Summary Hospital Course Discharge Diagnosis: 1. Facial numbness, transient and headache 2. Questionable left vertebral artery dissection, resolved 3. Parkinsons disease 4. Chronic pain, documented fibromyalgia, history of opioid dependece 5. History of migraine 6. Hypertension Hospital Course: This is a 72 year old female with PMH of Parkinson's disease, chronic pain, migraine, and HTN who presented with facial numbness. Symptoms resolved compl etely shortly after admission. Blood pressure the following day was within normal limits off of any antihypertensives. MRI showed no acute ischemic infarcts. ESR and CRP were negative, so vasculitis is unlikely. Echocardiogram was also unremarkable. She later had R sided neck pain, it is possible symptoms were musculoskeletal in nature, though etiology is still not clear, and may be due to complex migraine as well. Given resolution and improvement, TIA is thought to be less likely and asa and statin were not recommended at discharge, though encourage discussion with primary care provider in the near future. No changes to her home sinemet were recommended at the time of discharge. Initial CT also showed possible left vertebral artery dissection, though on MR angiogram no abnormalities were noted. Exam Vital Signs (past 8 hours): - 09/30/22 04:06 09/30/22 05:00 09/30/22 08:36 Temperature 97.4 F L Pulse Rate 65 Respiratory Rate 18 Blood Pressure 133/51 L Pulse Oximetry 100 96 97 Oxygen Delivery Method Room Air Room Air Oxygen Flow Rate 0 0 09/30/22 09:00 Temperature 98.5 F Pulse Rate 71 Respiratory Rate 18 Blood Pressure 135/55 L Pulse Oximetry 100 Oxygen Delivery Method Oxygen Flow Rate Oxygen Delivery Method Room Air Oxygen Flow Rate 0 Narrative Exam Narrative: GEN: no acute distress HEENT: moist mucous membranes, PERRL, tenderness to palpation right occipital head NECK: trachea midline, no jvd CV: regular rate and rhythm, no murmurs PULM: clear bilaterally, no wheezes, rhonchi, rales ABD: soft, nontender, nondistended, normal bowel sounds EXT: warm and well perfused with no edema NEURO: awake, alert, oriented, no focal deficits Objective Labs 09/30/22 05:45 09/30/22 05:45 Labs: Laboratory Results - last 24 hr 09/29/22 09/29/22 09/29/22 15:25 15:25 15:25 WBC 6.2 RBC 4.56 Hgb 14.5 Hct 43.0 MCV 94.3 MCH 31.8 MCHC 33.7 RDW 14.0 Plt Count 258 Neut % (Auto) 61.0 Lymph % (Auto) 29.1 Mcduffie % (Auto) 7.5 Eos % (Auto) 1.4 L Baso % (Auto) 1.0 Neut # (Auto) 3800 Lymph # (Auto) 1800 Mcduffie # (Auto) 500 Eos # (Auto) 100 Baso # (Auto) 100 ESR Sodium 138 Potassium 4.1 Chloride 102 Carbon Dioxide 29 BUN 17 Creatinine 0.75 Estimated GFR > 60 BUN/Creatinine Ratio 22.7 H Glucose 100 Hemoglobin A1c Calcium 9.6 Total Bilirubin 0.3 AST 19 ALT 9 Alkaline Phosphatase 54 Total Creatine Kinase 35 CK-MB (CK-2) TNP CK-MB (CK-2) Rel Index TNP Troponin I < 0.012 C-Reactive Protein Total Protein 7.9 Albumin 4.5 Globulin 3.4 Albumin/Globulin Ratio 1.3 Triglycerides Cholesterol LDL Cholesterol, Calc HDL Cholesterol SARS-CoV-2 (PCR) 09/29/22 09/29/22 09/29/22 15:25 15:25 23:20 WBC RBC Hgb Hct MCV MCH MCHC RDW Plt Count Neut % (Auto) Lymph % (Auto) Mcduffie % (Auto) Eos % (Auto) Baso % (Auto) Neut # (Auto) Lymph # (Auto) Mcduffie # (Auto) Eos # (Auto) Baso # (Auto) ESR 4 Sodium Potassium Chloride Carbon Dioxide BUN Creatinine Estimated GFR BUN/Creatinine Ratio Glucose Hemoglobin A1c Calcium Total Bilirubin AST ALT Alkaline Phosphatase Total Creatine Kinase CK-MB (CK-2) CK-MB (CK-2) Rel Index Troponin I C-Reactive Protein 0.6 Total Protein Albumin Globulin Albumin/Globulin Ratio Triglycerides Cholesterol LDL Cholesterol, Calc HDL Cholesterol SARS-CoV-2 (PCR) Negative 09/30/22 09/30/22 09/30/22 05:45 05:45 05:45 WBC 4.6 RBC 4.20 Hgb 13.3 Hct 39.4 MCV 93.7 MCH 31.7 MCHC 33.9 RDW 14.4 Plt Count 222 Neut % (Auto) 50.7 Lymph % (Auto) 37.0 Mcduffie % (Auto) 9.1 Eos % (Auto) 1.8 L Baso % (Auto) 1.4 Neut # (Auto) 2300 Lymph # (Auto) 1700 [place]duffie # (Auto) 400 Eos # (Auto) 100 Baso # (Auto) 100 ESR Sodium 137 Potassium 3.8 Chloride 107 Carbon Dioxide 25 BUN 15 Creatinine 0.71 Estimated GFR > 60 BUN/Creatinine Ratio 21.1 Glucose 98 Hemoglobin A1c Cancelled Calcium 8.7 Total Bilirubin AST ALT Alkaline Phosphatase Total Creatine Kinase CK-MB (CK-2) CK-MB (CK-2) Rel Index Troponin I C-Reactive Protein Total Protein Albumin Globulin Albumin/Globulin Ratio Triglycerides 98 Cholesterol 216 H LDL Cholesterol, Calc 133 H HDL Cholesterol 63 H SARS-CoV-2 (PCR) [facility] Medical History Acne (~1998) ADHD (~2004) Ankle pain (~1987) Anorexia nervosa Anxiety (~1952) Asthma Atrial fibrillation (~1999) Chicken pox (~1958) Chronic back pain (~1993) Contusion of multiple sites Depression (~1963) Fall Fibromyalgia (~1999) Foot pain (~1999) Fractures Headache (~1979) Hearing loss History of recurrent ear infection Hyperlipidemia (~1999) Hypertension (~1999) Infectious disease (~1955) Irritable bowel syndrome (~1997) Measles (~1959) Methadone dependence Migraines (~1959) Mumps (~1955) Osteoarthritis (~1999) Osteoporosis (~1998) Post traumatic stress disorder (PTSD) (~2001) Psoriasis (~1997) Restless leg syndrome Rubella (~1959) Seasonal allergies Shoulder pain (~2014) Slipped disc in neck Uncomplicated opioid dependence Vision disorder Surgical History History of back surgery History of elbow surgery (~1994) History of knee surgery (~1988) Status post delivery (~1977) Status post hysterectomy Family History Brother Heart disease Essential hypertension Hyperlipidemia Father Malignant neoplasm of lung, unspecified laterality, unspecified part of lung Heart disease Essential hypertension Hyperlipidemia Grandmother Cancer Type 2 diabetes mellitus without complication, unspecified director long term care insulin use status Heart disease Essential hypertension Hyperlipidemia Cerebrovascular accident (CVA), unspecified mechanism Mother Cancer Heart disease Essential hypertension Hyperlipidemia Cerebrovascular accident (CVA), unspecified mechanism Grandfather Heart disease Essential hypertension Hyperlipidemia Grandmother Cerebrovascular accident (CVA), unspecified mechanism Social History household members: spouse Smoking Status: Former smoker Discharge Plan Discharge Plan Patient Disposition: Home Provider Discharge Comment: You were admitted to the hospital for a possible TIA, based on your history, negative MRI that is probably less likely. No med ication changes are recommended at this time. Discharge orders & Medications Prescriptions: Continued carbidopa-levodopa 25-100 mg tablet 1.5 tab PO BID Follow up/Referrals: Jannette Montez PA-C [Primary Care Provider] - Diet/Activity/Treatments Diet: Diet as Tolerated Activity: As tolerated Visit Report/Discharge Packet Instructions: Transient Ischemic Attack, DI for Transient Ischemic Attack, How to Prevent Falls Stand Alone Forms: Patient Portal/API, Stroke Signs & Symptoms Discharge Data Primary Care Provider: Jannette Montez Attending Provider: Lobo Stephen Admit Date/Time: 09/29/22 23:33 Discharges patient from system. Discharge Date/Time: 09/30/22 12:55
--- NOTE | 2022-09-30 11:00 | PT.IIE ---
Surgical History (Last Reviewed 09/29/22 @ 23:37 by Lobo Stephen MD) History of back surgery History of elbow surgery (~1994) History of knee surgery (~1988) Status post delivery (~1977) Status post hysterectomy Medical History (Last Reviewed 09/29/22 @ 23:37 by Lobo Stephen MD) Acne (~1998) ADHD (~2004) Ankle pain (~1987) Anorexia nervosa Anxiety (~1952) Asthma Atrial fibrillation (~1999) Chicken pox (~1958) Chronic back pain (~1993) Contusion of multiple sites Depression (~1963) Fall Fibromyalgia (~1999) Foot pain (~1999) Fractures Headache (~1979) Hearing loss History of recurrent ear infection Hyperlipidemia (~1999) Hypertension (~1999) Infectious disease (~1955) Irritable bowel syndrome (~1997) Measles (~1959) Methadone dependence Migraines (~1959) Mumps (~1955) Osteoarthritis (~1999) Osteoporosis (~1998) Post traumatic stress disorder (PTSD) (~2001) Psoriasis (~1997) Restless leg syndrome Rubella (~1959) Seasonal allergies Shoulder pain (~2014) Slipped disc in neck Uncomplicated opioid dependence Vision disorder Physical Therapy Inpatient Evaluation/Re-Eval M1 PT/OT-IP Prior Functional Status Start: 09/30/22 09:34 Freq: NEEDED Status: Active Protocol: Document 09/30/22 11:00 DL (Rec: 09/30/22 11:21 DL [id number]) Medical Review Prior Functional Status Medical History Reviewed Yes Diet/Fluid Consistency Regular Communication WFL, reading glasses Mobility and Gait Independent without device, working with out-Pt physical therapy Activities of Daily Living and IADL's Independent Social History Household Members spouse Living Arrangements House Number of Floors (Floors) One Floor Number of Stairs To Enter/Railing? none Home Equipment Front Wheel Walker,Straight Cane M2 PT-IP Current Condition Start: 09/30/22 09:34 Freq: NEEDED Status: Active Protocol: Document 09/30/22 11:00 DL (Rec: 09/30/22 11:21 [facility] [id number]) Physical Therapy Current Condition Current Condition Evaluation Date 09/30/22 Treatment Diagnosis rule out stroke, headache, neck pain Onset Date 09/29/22 M3 PT-IP Subjective Start: 09/30/22 09:34 Freq: NEEDED Status: Active Protocol: Document 09/30/22 11:00 [facility] (Rec: 09/30/22 11:21 [facility] [id number]) Subjective Physical Therapy Visit Type Type Initial Evaluation Visit Start Time 10:30 Visit Stop Time 11:00 Total Visit Minutes 30 Number of FISHERIES SPECIALIST Visits 0 Physical Therapy Visit Comments Patient Comments She has a specifica area of pain in her right side of head that is very painful to touch . She has a hx of neck pain and prior surgeries but her current pain is new. She reports no recent falls. She has been progressing her exercises in physical therapy including pool exercises recently. She recalls doing a lot of laundry before her pain started but she is unsure if it contributed to her new pain Patient Goals discharge home, decrease her pain Therapy Pain Assessment Pain When Pain Assessed During Mobility Pain Present Pain Present Pain Reported Location Head Intensity 10 Scale Used Numeric (0 - 10) Description Aching,Sharp Pain Behaviors Facial Grimacing Pain Management Techniques Modification of Treatment M4 PT-IP Mobility and Gait Start: 09/30/22 09:34 Freq: NEEDED Status: Active Protocol: Document 09/30/22 11:00 [facility] (Rec: 09/30/22 11:21 [facility] [id number]) PT-Bed Mobility Assessment Rolling Level of Assist Independent Supine to Sit Supine to Sit Independent Sit to Supine Sit to Supine Independent Scooting Scooting to Edge of Bed Independent Scooting Up and Down in Bed Independent PT-Transfer Assessment Sit to and From Stand Sit to and from Stand Independent,Use of Upper Extremities Equipment Transfer Assistive Device None Transfers Transfer Destination Bed Transfer Technique Stand Step Pivot Transfer Ability Level of Assist Independent,Use of Upper Extremities Comments Mobility Comments She reports 10/10 pain if area on right side of head touched . Pain in right upper trap and neck area is 3-4/10. She reports no increased pain with mobility/gait. She describes feeling tired while ambulating today but she believes it is from poor sleep last night. Gait Assessment Gait Gait Assistance Required: Independent Distance (Feet) 200 Assistive Devices Assistive Device None Gait Deviations General Gait Pattern Wide Based Gait PT-Balance Assessment Sitting Balance and Reactions Static Sitting Balance Ability Normal Dynamic Sitting Balance Ability Normal Standing Balance and Reactions Static Standing Balance Ability Good Dynamic Standing Balance Ability Good M5 PT-IP Objective Assessments Start: 09/30/22 09:34 Freq: NEEDED Status: Active Protocol: Document 09/30/22 11:00 DLM (Rec: 09/30/22 11:21 DL [id number]) Orientation Orientation/Cognition Level of Alertness Alert Orientation Name,Age,Birthday,Month,Date, Year,Day of Week,Place, Situation Language Function Ability No Deficits Noted Safety Awareness Understands Safety Issues Memory Description No Deficits Noted Gross Range of Motion Upper Extremity ROM Assessment Within Functional Limits Lower Extremity ROM Assessment Within Functional Limits Strength Upper Extremity Strength Assessment Within Functional Limits Lower Extremity Strength Assessment Within Functional Limits Coordination Assessment Gross Coordination Gross Coordination WNL Assessment Coordination Comments mild tremors but do not limit function at this time, hx of Parkinsons symptoms managed with medications Sensation Assessment Comments Sensation Comments no changes at this time, she reports intermittent numbness right side of face Muscle Tone Muscle Tone WNL Yes Comments Muscle Tone Comments she describes feeling a little stiff today Other Assessments Other Other Assessments manual assessment of right cervical and upper trap area shows significant muscle/soft tissue tightness and painful to touch. Her cervical AROM is painful with all motions with right rotation the worst. M6 PT-IP Treatment Start: 09/30/22 09:34 Freq: NEEDED Status: Active Protocol: Document 09/30/22 11:00 DLM (Rec: 09/30/22 11:21 DL [id number]) Physical Therapy Treatment Education Education Provided Safety Other Treatments Other Treatment Performed educated pt on clinical findings this visit and discussed possible reasons she may have strained right cervical area, encouraged her to work with her out-pt PT to decrease her pain M7 PT-IP Assessment and Plan Start: 09/30/22 09:34 Freq: NEEDED Status: Active Protocol: Document 09/30/22 11:00 DLM (Rec: 09/30/22 11:21 [facility] [id number]) PT Summary Assessment and Plan Potential Rehabilitation Potential Excellent Status of Condition at Evaluation Evolving Summary Impairments Pain,ROM,Activity Tolerance Progress Towards Goals Safe For Discharge Assessment Summary Yamilka is alert and resting in bed today. Her arrived during this therapy session. Pt continues to have headache and right sided head pain. Clinical exam also shows significant muscular/soft tissue tightness right cervical and upper trap area. Her symptoms suggest cervical strain. Pt has a history of cervical spine impairments and past surgery. Pt verbalizes good understanding of clinical findings. She demonstrates safe mobility and gait without a device. She appears safe to discharge home when medically stable. She is active with out-pt PT and recommend she resume those treatments to help manage her increased pain . No further skilled physical therapy needed while she is hospitalized. Frequency of Treatment Frequency Of Treatment Discharge Recommendations To Nursing Amount of Assist Needed Independent Discharge Recommendations PT Discharge Recommendations Home,Outpatient PT Transportation Needs at Discharge Private Vehicle
[2022-09-30] MEDS: BACLOFEN 10 MG TABLET PO (11:10)
--- NOTE | 2022-09-30 12:08 | CM.DANOTE ---
Patient is a 72 yo female who was admitted on 09/29/22 for TIA r/o. Pt has [employer] for insurance and her PCP is Jannette Montez. EMR was reviewed. Per MD, pt with hx of Parkinsons and to have imaging to r/o TIA vs CVA. ST cancelled as no swallow/speech issues. PT/OT ordered and recommendation of home with spouse and outpt PT. Pt resides in [place] with her spouse and is active and independent at baseline and spouse is her DPOA and pt denies any recent hx of HH or SNF and does not have any concerns about discharge home today and confirms she feels back to baseline. Spouse can provide transport. Plan: Patient to d/c home via spouse POV and outpt follow up and no further SW needs at this time. SILVIA Alfredo Discharge Planning/Care Management CM Discharge Assessment Start: 09/30/22 11:42 Freq: Status: Active Protocol: Document 09/30/22 11:42 BF (Rec: 09/30/22 12:05 [id number]) Discharge Planning Assessment Assigned Furnace Firer SILVIA Ortega DPOA/Assigned Designee Name spouse Ap Contact Information [phone] Advance Directives? No: Needs updating Advance Directives on File No History Provided By Patient,Medical Record Has Patient been admitted in last 30 No days? Prior Living Arrangements House Household Members spouse Type of transporation used prior to Drives own vehicle admit Independent with ADL's Yes Is patient alert and oriented? Yes Caregiver for Another No DME Already Rented / Owned FWW / Walker,Cane Patient/Family Preference OP PT Therapy Barriers to Discharge No Discharge Plan Home Community Services Physical Therapy Transportation Arrangement spouse to transport Referrals Initiated None needed Whiteboard Updated in Patient Room with Yes name and ext. # of Furnace Firer Review Status In Process Please Provide Date Initial DC 09/30/22 Assessment Was Performed Next Review Type Continued Stay Review
--- NOTE | 2022-09-30 12:49 | PC.NURSE ---
Day shift: Paperwork signed and all questions answered. No new MD scripts. Left unit at approx [phone] via WC. Taken to car by this underwriter solicitation director. Spouse is driving Pt home. Pt has made her own appointment to see her PCP next week. Pt has all personal belongings.
[2022-10-01 06:10] LABS: Labcorp Hemoglobin (Hb) A1c 5.6 % (4.8-5.6)
== END 2022-09-30 12:55 | disposition home or self-care (01) ==
LOC: ED 21:58 → AC 23:34
PROVIDERS: Emergency Medicine; Admitting Provider Internal Medicine; Emergency Provider Emergency Medicine; PCP Physician Assistant; Visit Provider Internal Medicine
DX: R51.9 Headache, unspecified (principal); R20.0 Anesthesia of skin; M79.601 Pain in right arm; R29.700 NIHSS score 0; G20 Parkinson's disease; M79.7 Fibromyalgia; I10 Essential (primary) hypertension; Z20.822 Contact with and (suspected) exposure to COVID-19
CPT/HCPCS: 36415; 70450; 70496; 70498; 70548; 70553; 80048; 80053; 80061; 81003; 82550; 83036; 84484; 85025; 85651; 86140; 87635; 93005; 93010; 93306; 96361; 96372; 96374; 97161; 99285; C9803; G0378; A9579; J1200; J1650; Q9967

== ENCOUNTER → 2023-02-02 06:42 | Outpatient (CLI) | payer BC, SELFPAY ==
[2023-02-02 09:09] LABS: Cholesterol 218 mg/dL (140-199); HDL Cholesterol 58 mg/dL (40-60); LDL Cholesterol Calculated 129 mg/dL (<100); Triglycerides 156 mg/dL (35-150)
[2023-02-02 09:55] LABS: TSH w/ Reflex to FT4 3.98 uIU/mL (0.47-4.68)
== END ==
PROVIDERS: PCP Physician Assistant; Referring Provider Internal Medicine Cardiovascular Disease; Visit Provider Internal Medicine Cardiovascular Disease
DX: R68.89 Other general symptoms and signs (principal); E78.5 Hyperlipidemia, unspecified
CPT/HCPCS: 36415; 80061; 84443

== ENCOUNTER → 2023-05-19 13:25 | Outpatient (CLI) | payer BC, SELFPAY ==
--- NOTE | 2023-05-19 | DI.MG.S_ITS ---
BILATERAL DIGITAL SCREENING MAMMOGRAM 3D/2D WITH CAD: 05/19/2023 CLINICAL: Routine screening. Family history of breast cancer. Comparison is made to exams dated: 08/15/2014 mammogram, 06/08/2013 mammogram, and 05/20/2010 mammogram - Outside facility. Both breasts are almost entirely fatty (category a/<25% glandular tissue). Current study was also evaluated with a Computer Aided Detection (CAD) system. There are benign calcifications in the right breast. No significant masses, calcifications, or other findings are seen in either breast. There has been no significant interval change. IMPRESSION: BENIGN There is no mammographic evidence of malignancy. A 1 year screening mammogram is recommended. Based on the Tyrer Cuzick model (a risk assessment model) the patient's lifetime risk is 6.3% and her 10 year risk is 4.0%. According to the ACR, ACS, and NCCN guidelines, an annual breast MRI exam along with mammogram is recommended if the patient's lifetime risk is 20% or greater. This exam was interpreted at Station ID: [id number]. NOTE: For mammograms, a report in lay terms will be sent to the patient. Approximately 15% of breast malignancies will not be visualized mammographically. In the management of a palpable breast mass, a negative mammogram must not discourage biopsy of a clinically suspicious lesion. Electronically Signed By: Chani cowan/solo:05/19/2023 17:05:20 letter sent: Normal Exam ACR BI-RADS Category 2: Benign Finding(s) [id number]
== END ==
PROVIDERS: PCP Physician Assistant; Referring Provider Physician Assistant; Visit Provider Physician Assistant
DX: Z12.31 Encounter for screening mammogram for malignant neoplasm of breast (principal); Z80.3 Family history of malignant neoplasm of breast
CPT/HCPCS: 77063; 77067

== ENCOUNTER → 2023-11-18 13:37 | Outpatient (CLI) | payer MEDICARE, OTHER, SELFPAY ==
--- NOTE | 2023-11-18 13:39 | DI.MRI.S_ITS ---
PROCEDURE: MR ANKLE LT WO CON INDICATIONS: Peroneal tendinitis, left leg TECHNIQUE: Noncontrast sagittal T1 spin echo and T2 fast spin echo with fat saturation, axial proton density fast spin echo and T2 fast spin echo with fat saturation, coronal T1 spin echo and T2 fast spin echo with fat saturation through the ankle/hindfoot. COMPARISON: None. FINDINGS: Image quality: Excellent. Bones and joints: Mild midfoot and hindfoot joint osteoarthritic changes are seen more notably involving 4th and 5th TMT joints. No bone marrow contusions or fractures. No hindfoot coalitions. No osteochondral injuries of the talar dome. Small tibiotalar and subtalar joint effusion is seen, no gross loose bodies. Medial structures: The posterior tibialis tendon is thickened with small amount of fluid distending tendon sheath near its distal insertion. The flexor digitorum longus, and flexor hallucis longus tendons are intact. The posterior tibial neurovascular bundle appears normal within the tarsal tunnel, without extrinsic mass effect. The deltoid ligament and spring ligament are intact. Lateral structures: The anterior talofibular ligament appears thickened. The calcaneofibular, and posterior talofibular ligaments appear intact. More superiorly, the anterior and posterior tibiofibular ligaments appear intact, as is the intermalleolar ligament. The tibiofibular syndesmosis is normal in width at 2 mm or less. The peroneus tendons are markedly thickened at the level of lateral malleolus extending to the level of calcaneocuboid joint. Adjacent bony peroneal tubercle and retrotrochlear prominence are normal in size. The sinus tarsi demonstrates normal fatty signal, without edema, fibrosis, or cyst formation. Visualized sinus tarsi components (cervical ligament, interosseous talocalcaneal ligament, roots of the inferior extensor retinaculum) appear normal. The calcaneonavicular and calcaneocuboid components of the bifurcate ligament appear intact. The dorsal calcaneocuboid ligament appears intact. Anterior structures: The tibialis anterior, extensor hallucis longus, and extensor digitorum longus tendons appear intact. The dorsal talonavicular ligament appears intact. Posterior and plantar structures: Achilles tendon is thickened at its posterior calcaneal insertion with mild adjacent edema.. Medial and lateral bands of the plantar fascia are of normal thickness. No abductor digiti quinti muscle atrophy to suggest Mclaughlin neuropathy. IMPRESSION: 1. Midfoot and hindfoot joint osteoarthritis. No fracture or dislocation. No osteochondral injuries of talar dome. Small joint effusion, no loose bodies. 2. Low-grade tenosynovitis involving posterior tibialis tendon near its distal insertion. 3. Moderate grade tendinosis involving peroneus tendons at the level of lateral malleolus extending to the level of cuboid. 4. Low-grade ATFL sprain. Rest of the ankle ligaments are intact. 5. Mild distal Achilles tendinosis at its posterior calcaneal insertion. No Achilles tendon rupture. Dictated by: Cesar Swift M.D. on 11/18/2023 at 16:17 Approved by: Cesar Swift M.D. on 11/18/2023 at 16:31
== END ==
PROVIDERS: PCP Nurse Practitioner Family; Referring Provider Podiatrist; Visit Provider Podiatrist
DX: S93.492A Sprain of other ligament of left ankle, initial encounter (principal); M76.72 Peroneal tendinitis, left leg; M19.072 Primary osteoarthritis, left ankle and foot; M25.475 Effusion, left foot; M65.872 Other synovitis and tenosynovitis, left ankle and foot
CPT/HCPCS: 73721

== ENCOUNTER → 2024-01-27 08:03 | Outpatient (CLI) | payer MEDICARE, OTHER, SELFPAY | PROVIDERS: PCP Nurse Practitioner Family; Referring Provider Internal Medicine Critical Care Medicine; Visit Provider Internal Medicine Critical Care Medicine | DX: R06.09 Other forms of dyspnea (principal); Z87.891 Personal history of nicotine dependence; R94.2 Abnormal results of pulmonary function studies | CPT/HCPCS: 94060; 94726; 94729 ==

== ENCOUNTER → 2024-02-04 06:57 | Outpatient (CLI) | payer MEDICARE, OTHER, SELFPAY ==
[2024-02-04 08:14] LABS: Hemoglobin A1C% w Est Avg Glu 5.2 % (4.0-6.0)
[2024-02-04 08:39] LABS: Cholesterol 200 mg/dL (140-199); HDL Cholesterol 69 mg/dL (40-60); LDL Cholesterol Calculated 109 mg/dL (<100); Triglycerides 110 mg/dL (35-150)
== END ==
PROVIDERS: PCP Nurse Practitioner Family; Referring Provider Nurse Practitioner Family; Visit Provider Nurse Practitioner Family
DX: E78.5 Hyperlipidemia, unspecified (principal); E66.01 Morbid (severe) obesity due to excess calories; Z68.41 Body mass index [BMI] 40.0-44.9, adult
CPT/HCPCS: 36415; 80061; 83036

== ENCOUNTER → 2024-04-26 07:01 | Outpatient (CLI) | payer MEDICARE, OTHER, SELFPAY ==
[2024-04-26 08:39] LABS: Cholesterol 157 mg/dL (140-199); HDL Cholesterol 79 mg/dL (40-60); LDL Cholesterol Calculated 56 mg/dL (<100); Triglycerides 111 mg/dL (35-150)
== END ==
PROVIDERS: PCP Nurse Practitioner Family; Referring Provider Internal Medicine Cardiovascular Disease; Visit Provider Internal Medicine Cardiovascular Disease
DX: E78.5 Hyperlipidemia, unspecified (principal)
CPT/HCPCS: 36415; 80061

== ENCOUNTER → 2024-07-31 06:53 | Outpatient (CLI) | payer MEDICARE, OTHER, SELFPAY ==
[2024-07-31 07:47] LABS: Add Manual Diff / Slide Review NO; Basophils Absolute Auto 100 /uL (0-100); Basophils Percent Auto 1.2 % (0-2); Eosinophils Absolute Auto 200 /uL (0-450); Eosinophils Percent Auto 3.8 % (2-4); Hematocrit 41.9 % (36-46); Hemoglobin 14.1 g/dL (12.0-16.0); Lymphocytes Absolute Auto 1900 /uL (1100-4500); Lymphocytes Percent Auto 38.9 % (25-40); Mean Corpuscular HGB Conc 33.7 % (30-36); Mean Corpuscular Hemoglobin 32.3 PG (26-34); Mean Corpuscular Volume 95.8 fL (80-100); Monocytes Absolute Auto 400 /uL (0-900); Monocytes Percent Auto 7.6 % (3-14); Neutrophils Absolute Auto 2400 /uL (1500-7000); Neutrophils Percent Auto 48.5 % (50-75); Platelet Count 256 X10^3/uL (150-400); Red Blood Cell Count 4.38 X10^6/uL (4.0-5.2); Red Cell Distribution Width 14.4 % (11.6-14.8); White Blood Cell Count 4.9 X10^3/uL (4.5-11.0)
[2024-07-31 08:21] LABS: BUN Creatinine Ratio 21.3 (6-22); Blood Urea Nitrogen 16 mg/dL (7-17); Calcium 9.4 mg/dL (8.4-10.2); Carbon Dioxide 23 mmol/L (22-32); Chloride 105 mmol/L (98-107); Estimated Glomerular Filt Rate > 60 mL/min (>60); Glucose 99 mg/dL (80-110); HEMOLYSIS < 15 (0-50); Potassium 4.2 mmol/L (3.4-5.1); Sodium 139 mmol/L (137-145)
== END ==
PROVIDERS: PCP Nurse Practitioner Family; Referring Provider Nurse Practitioner Family; Visit Provider Nurse Practitioner Family
DX: N64.4 Mastodynia (principal); E66.01 Morbid (severe) obesity due to excess calories; Z68.41 Body mass index [BMI] 40.0-44.9, adult; L30.9 Dermatitis, unspecified; R06.02 Shortness of breath
CPT/HCPCS: 36415; 80048; 85025

== ENCOUNTER → 2024-08-17 07:58 | Outpatient (CLI) | payer MEDICARE, OTHER, SELFPAY ==
--- NOTE | 2024-08-17 07:59 | DI.MG.S_ITS ---
MM diagnostic mammo BI: 08/17/2024. BI-RADS: 1 CLINICAL: 74-year old female for bilateral diagnostic mammogram. Tyrer-Cuzick lifetime risk of 8.1%. Current reported family history of breast cancer: mother. The patient reports pain and nipple abnormality in both breasts. PRIOR EXAMS 05/19/2023. MAMMOGRAPHY TECHNIQUE: 2D and 3D (tomosynthesis) digital mammographic views obtained, with additional images as needed for full coverage. Current study was also evaluated with a Computer Aided Detection (CAD) system. DENSITY B. There are scattered areas of fibroglandular density. MAMMOGRAPHY FINDINGS Bilateral: No suspicious mass, asymmetry, microcalcification, or other abnormality seen. IMPRESSION: * No evidence of malignancy. RECOMMENDATIONS Bilateral * Annual screening mammography. OVERALL ASSESSMENT CATEGORY BI-RADS-1: Negative. The [employer] recommends annual screening mammography beginning at age 40 for women with average risk of breast cancer. ELECTRONICALLY SIGNED: Pedro Bruno M.D. on 08/17/2024 at 09:44:14 AM Interpreting Station ID: [id number]
== END ==
PROVIDERS: PCP Nurse Practitioner Family; Referring Provider Nurse Practitioner Family; Visit Provider Nurse Practitioner Family
DX: N64.4 Mastodynia (principal); Z80.3 Family history of malignant neoplasm of breast
CPT/HCPCS: 77066; G0279

== ENCOUNTER → 2024-10-19 07:47 | Outpatient (CLI) | payer MEDICARE, OTHER, SELFPAY ==
--- NOTE | 2024-10-19 07:48 | DI.CT.S_ITS ---
PROCEDURE: CT HEAD/BRAIN WO CON INDICATIONS: headaches TECHNIQUE: Noncontrast 4.5 mm thick angled axial sections acquired from the foramen magnum to the vertex, with coronal and sagittal reformats. For radiation dose reduction, the following was used: automated exposure control, adjustment of mA and/or kV according to patient size. COMPARISON: [facility], CT, CT HEAD/BRAIN WO CON, 09/29/2022, 15:12. FINDINGS: Image quality: Diagnostic. CSF spaces: Basal cisterns are patent. No extra-axial fluid collections. The ventricles are symmetric in size and shape. Brain: No intracranial bleeds or mass effect. There is cerebral volume loss, with resultant ventricular and sulcal prominence. There are periventricular and deep white matter chronic small vessel ischemic changes. There is intracranial internal carotid artery atherosclerosis. Skull and face: Calvarium and visualized facial bones appear intact, without suspicious lesions. Sinuses: Visualized sinuses and mastoids are clear. IMPRESSION: No acute intracranial pathology. Dictated by: Bhaskar Parra M.D. on 10/19/2024 at 9:21 Approved by: Bhaskar Parra M.D. on 10/19/2024 at 9:22
== END ==
LOC: CT 07:48
PROVIDERS: PCP Nurse Practitioner Family; Referring Provider Nurse Practitioner Family; Visit Provider Nurse Practitioner Family
DX: I65.29 Occlusion and stenosis of unspecified carotid artery (principal); R51.9 Headache, unspecified; G89.29 Other chronic pain
CPT/HCPCS: 70450

== ENCOUNTER → 2025-04-26 09:31 | Outpatient (CLI) | payer MEDICARE, OTHER, SELFPAY | LOC: LAB 09:33 | PROVIDERS: PCP Nurse Practitioner Family; Visit Provider Nurse Practitioner Family | DX: R30.0 Dysuria (principal) | CPT/HCPCS: 87086 ==

== ENCOUNTER → 2025-05-09 08:43 | Outpatient (CLI) | payer MEDICARE, OTHER, SELFPAY ==
--- NOTE | 2025-05-09 09:37 | DI.MRI.S_ITS ---
PROCEDURE: MR THORACIC SPINE WO CON INDICATIONS: spinal tenderness, gait change,bilat leg weakness TECHNIQUE: Noncontrast sagittal T1 spine echo and T2 fast spin echo, sagittal STIR, and T2 fast spin echo through the thoracic spine. COMPARISON: [facility], MRI T-SPINE W/O CONTRAST, 04/01/2015, 8:00. FINDINGS: Image quality: Image quality mildly degraded by patient motion artifact. Alignment and Curvature: There is normal bony alignment. Bone Marrow: Mixed Modic type 1-2 reactive endplate changes adjacent to the T10-T11 and T11-T12 discs. Benign, intraosseous hemangioma in the T6 vertebral body. No acute vertebral body compression fractures. Spinal Cord: Visualized spinal cord is normal in size and signal. Paraspinous Soft Tissues: No paravertebral masses. Miscellaneous: Mild degenerative disc changes throughout the thoracic spine. Mild facet hypertrophy throughout the thoracic spine. No severe central canal stenosis. No severe neural foraminal stenosis. No neural compression. IMPRESSION: Multilevel degenerative disc disease. Multilevel facet arthropathy. No severe central canal stenosis. No severe neural foraminal stenosis. No neural compression. No abnormal spinal cord signal Dictated by: Chary Martinez MD, PhD on 05/09/2025 at 10:53 Approved by: Chary Martinez MD, PhD on 05/09/2025 at 11:06
== END ==
LOC: MRI 08:44
PROVIDERS: PCP Nurse Practitioner Family; Referring Provider Nurse Practitioner Family; Visit Provider Nurse Practitioner Family
DX: M51.34 Other intervertebral disc degeneration, thoracic region (principal); M47.814 Spondylosis without myelopathy or radiculopathy, thoracic region; D18.09 Hemangioma of other sites; R26.9 Unspecified abnormalities of gait and mobility; R29.898 Other symptoms and signs involving the musculoskeletal system
CPT/HCPCS: 72146